=== PATIENT | female | born 1945 | race African-American/Black ===

== ENCOUNTER 2018-04-23 19:37 | Emergency (ER) | payer OTHER ==
--- NOTE | 2018-04-23 20:46 | RAD REPORT ---
EXAM DESCRIPTION: CT - Stone Protocol - 04/23/2018 8:24 pm CLINICAL HISTORY: Back pain, dysuria, history of recent UTI COMPARISON: CT January 2016 TECHNIQUE: Axial 5 mm thick images were obtained without oral or IV contrast. The [id number] span s the entirety of the system including uppermost abdomen and lung bases. All CT scans are performed using dose optimization technique as appropriate and may include automated exposure control or mA/KV adjustment according to patient size. FINDINGS: No hydronephrosis is present and no obstructing ureteral calculi. No suspicious renal mass es. Isodense masses and pyelonephritis are not excluded on a stone protocol CT scan. No urinary bladd er suspicious finding. Uterus and ovaries show no suspicious findings. Imaged portions of the liver, spleen and pancreas show no suspicious findings on non-contrast imaging . No gallbladder or biliary tree abnormality identified. No significant adrenal finding. No suspicious bowel findings. Appendix is normal. No hernia, mass or bulky lymphadenopathy noted. No free air, free fluid or inflammatory stranding. Disc and bony degenerative changes are present. No pathologic bone process. Vascular calcifications a re present. IMPRESSION: No hydronephrosis, obstructing calculus or other acute finding. Isodense masses and pyelonephritis are not excluded on stone protocol technique. Remainder the examination, as detailed above, shows no significant or suspicious finding.
[2018-04-23] MEDS ORDERED: NA CHLORIDE 0.9% 500 ML ONE (21:11)
[2018-04-23 21:20] LABS: Absolute Lymphocytes (CBC) 2.4 K/uL (0.7-4.9); Absolute Monocytes 0.8 K/uL (0.1-1.3); Absolute Neutrophil 3.7 K/uL (1.8-8.0); Basophils % 0.9 % (0-1.3); Eosinophils % 0.7 % (0-4.4); Hematocrit 41.9 % (36.0-45.0); Lymphocytes % 33.9 % (15.3-44.8); MCH 30.7 pg (27.0-35.0); MCV 89.6 fL (80-100); MPV 9.4 fL (7.6-11.3); Monocytes % 11.4 % (3.3-12.3); RBC Red Blood Cell Count 4.68 M/uL (3.86-4.86)
[2018-04-23 22:22] LABS: ALT/SGPT 16 U/L (12-78); AST/SGOT 11 U/L (15-37); Albumin 3.6 g/dL (3.4-5.0); Alkaline Phosphatase 94 U/L (45-117); BUN Blood Urea Nitrogen 13 mg/dL (7-18); Bicarbonate 29 mmol/L (21-32); Bilirubin Direct < 0.1 mg/dL (0-0.2); Bilirubin Total 0.3 mg/dL (0.2-1.0); Glucose Level 103 mg/dL (74-106); Lipase 112 U/L (73-393); Protein, Total 7.7 g/dL (6.4-8.2); Sodium Level 133 mmol/L (136-145)
[2018-04-23 22:27] LABS: Potassium 2.5 mmol/L (3.5-5.1)
[2018-04-23 22:29] LABS: Urine Blood TRACE (NEG); Urine Glucose NEGATIVE (NEG); Urine Protein NEGATIVE (NEG); Urine Specific Gravity 1.015 (1.005-1.030)
[2018-04-23 22:44] LABS: Urine Bacteria <20 /HPF (<20); Urine Culture Reflex Order NOT NEEDED; Urine RBC <5 /HPF (NONE SEEN)
[2018-04-23] MEDS ORDERED: KCL 20 MEQ/100 mL IVPB 20 MEQ/100 ML BAG IV ONE (22:47)
[2018-04-23] MEDS ORDERED: POTASSIUM CL SA 10 MEQ TAB PO ONE ×2 (22:47→23:26)
--- NOTE | 2018-04-23 23:32 | ER ---
Nurse's Notes [facility] Name: Hosea Guillen Age: 72 yrs Sex: Female : 1945 Arrival Date: 04/23/2018 Time: 19:38 Bed 7 Private MD: Diagnosis: Dysuria;Hypokalemia Presentation: 04/23 20:05 Presenting complaint: Patient states: she is having low back pain and difficulty bb urinating states she cannot empty her bladder she recently had a bladder infection and saw her doctor for that but she is still having back pain. Transition of care: patient was not received from another setting of care. Onset of symptoms is unknown. Risk Assessment: Do you want to hurt yourself or someone else? Patient reports no desire to harm self or others. Initial Sepsis Screen: Does the patient meet any 2 criteria? No. Patient's initial sepsis screen is negative. Does the patient have a suspected source of infection? No. Patient's initial sepsis screen is negative. Care prior to arrival: None. 20:05 Method Of Arrival: Ambulatory bb 20:05 Acuity: ANNE 3 bb Historical: - Allergies: 20:08 Codeine; bb 20:08 Morphine; bb - Home Meds: 20:08 [id number] Oral [Active]; Haldol Oral 5 mg [Active]; bb Triamterene-Hydrochlorothiazid Oral [Active]; - PMHx: 20:08 Hypertension; UTI; bb - PSHx: 20:08 Tubal ligation; Thyroidectomy; bb - Immunization history:: Adult Immunizations unknown. - Family history:: not pertinent. - Ebola Screening: : No symptoms or risks identified at this time. - Social history:: Smoking status: unknown. - Hospitalizations: : No recent hospitalization is reported. Screenin:21 Abuse screen: Denies threats or abuse. Nutritional screening: No deficits noted. jd3 Tuberculosis screening: No symptoms or risk factors identified. Fall Risk Ambulatory Aid- None/Bed Rest/Nurse Assist (0 pts). Gait- Weak (10 pts.). Mental Status- Oriented to own ability (0 pts). Total Cardenas Fall Scale indicates No Risk (0-24 pts). Assessment: 20:19 General: Appears in no apparent distress. uncomfortable, Behavior is calm, cooperative, jd3 appropriate for age. Pain: Complains of pain in low back area Quality of pain is described as aching, sharp. Neuro: Level of Consciousness is awake, alert, obeys commands, Oriented to person, place, time, situation, Appropriate for age. Cardiovascular: Heart tones S1 S2 present Capillary refill < 3 seconds Patient's skin is warm and dry. Respiratory: Airway is patent Respiratory effort is even, unlabored, Respiratory pattern is regular, symmetrical, Breath sounds are clear bilaterally. GI: Abdomen is round Bowel sounds present X 4 quads. : Reports inability to void, since pt reports problem for about 2 weeks. EENT: No signs and/or symptoms were reported regarding the EENT system. Derm: Skin is intact, Skin is dry, Skin is normal, Skin temperature is warm. Musculoskeletal: Circulation, motion, and sensation intact. Range of motion: intact in all extremities. 21:28 Reassessment: Patient appears in no apparent distress at this time. No changes from jd3 previously documented assessment. Patient and/or family updated on plan of care and expected duration. Pain level reassessed. Patient is alert, oriented x 3, equal unlabored respirations, skin warm/dry/pink. 22:39 Reassessment: Patient appears in no apparent distress at this time. No changes from jd3 previously documented assessment. Patient and/or family updated on plan of care and expected duration. Pain level reassessed. Patient is alert, oriented x 3, equal unlabored respirations, skin warm/dry/pink. 23:15 Reassessment: IV to left AC infiltrated and discontinued with catheter intact, bleeding bb controlled, pressure dressing applied. Dr Atkinson notified received new orders pt medicated see NOV. 23:32 Reassessment: Patient appears in no apparent distress at this time. Patient and/or jd3 family updated on plan of care and expected duration. Pain level reassessed. Patient is alert, oriented x 3, equal unlabored respirations, skin warm/dry/pink. Patient states feeling better. 23:41 Reassessment: Patient appears in no apparent distress at this time. Patient and/or jd3 family updated on plan of care and expected duration. Pain level reassessed. Patient is alert, oriented x 3, equal unlabored respirations, skin warm/dry/pink. pt reported understanding of discharge instructions, even and steady gait upon discharge. Patient states symptoms have improved. Vital Signs: 20:13 BP 140 / 78; Pulse 109; Resp 18 S; Temp 98.8(O); Pulse Ox 96% on R/A; Weight 86.18 kg jd3 (R); Height 5 ft. 2 in. (157.48 cm) (R); Pain 7/10; 21:28 BP 107 / 65; Pulse 73; Resp 16 S; Pulse Ox 97% on R/A; jd3 22:38 BP 146 / 45; Pulse 75; Resp 17 S; Pulse Ox 96% on R/A; jd3 23:32 BP 165 / 75; Pulse 80; Resp 16 S; Pulse Ox 96% on R/A; jd3 20:13 Body Mass Index 34.75 (86.18 kg, 157.48 cm) jd3 ED Course: 19:38 Patient arrived in ED. ds1 19:42 Cali Atkinson MD is Attending Physician. rn 19:58 Marcus Fox RN is Primary Nurse. jd3 20:07 Triage completed. bb 20:08 Arm band placed on Patient placed in an exam room, on a stretcher, on pulse oximetry. bb 20:21 Patient has correct armband on for positive identification. Placed in gown. Bed in low jd3 position. Call light in reach. Side rails up X 1. 20:24 CT completed. Patient moved to CT. Patient moved back from CT. nj 20:25 CT Stone Protocol In Process Unspecified. EDMS 21:55 Inserted saline lock: 20 gauge in left antecubital area, using aseptic technique. Blood jd3 collected. placed by Dr. Atkinson. 22:10 Straight cath inserted, using sterile technique, 16 Fr. Specimen obtained. jd3 22:29 Notified ED physician of a critical lab result(s). Potassium of 2.5 Dr Atkinson notified. bb 23:17 IV discontinued, intact, bleeding controlled, Pressure dressing applied. bb 23:42 No provider procedures requiring assistance completed. jd3 Administered Medications: Discontinued: NS 0.9% 500 ml IV at bolus once Discontinued: Potassium Chloride 20 mEq IV at calculated rate once; administer over 1-2 hours 21:47 Drug: NS 0.9% 500 ml Route: IV; Rate: bolus; Site: left antecubital; jd3 23:34 Follow up: Response: No adverse reaction; IV Status: Order to discontinue infusion jd3 22:52 Drug: Potassium Chloride 20 mEq Route: IV; Rate: calculated rate; Site: left jd3 antecubital; 23:20 Follow up: Response: No adverse reaction; IV Status: Order to discontinue infusion jd3 22:52 Drug: Potassium Chloride 40 mEq Route: PO; jd3 23:33 Follow up: Response: No adverse reaction jd3 23:24 Drug: Potassium Chloride 20 mEq Route: PO; jd3 23:33 Follow up: Response: No adverse reaction jd3 Output: 22:10 Urine: 200ml (Straight Cath); Total: 200ml. jd3 Outcome: 23:32 Discharge ordered by . rn 23:42 Discharged to home ambulatory, with family. jd3 23:42 Condition: stable 23:42 Discharge instructions given to patient, Instructed on discharge instructions, follow up and referral plans. Demonstrated understanding of instructions, follow-up care. 23:43 Patient left the ED. jd3 Signatures: Dispatcher [employer] EDPR ChristensenGema kaplan ds1 Tierra Jones RN RN bb Nieto, Roman, MD MD rn Jordan, Nathan nj Davies, Jonathon, RN RN jd3
--- NOTE | 2018-04-23 23:32 | EDPHYS ---
Physician Documentation [facility] Name: Hosea Guillen Age: 72 yrs Sex: Female : 1945 Arrival Date: 04/23/2018 Time: 19:38 Bed 7 Private MD: ED Physician Cali Atkinson HPI: 04/23 20:05 This 72 yrs old Black Female presents to ER via Unassigned with complaints of Low Back rn Pain, Urinary Retention. 20:05 The patient presents with pain that is acute, with no known mechanism of injury. The rn symptoms are located in the low back. The pain does not radiate. Onset: The symptoms/episode began/occurred 2 week(s) ago. Modifying factors: The patient symptoms are alleviated by nothing, the patient symptoms are aggravated by. Severity of symptoms: At their worst the symptoms were mild, in the emergency department the symptoms are unchanged. The patient has experienced similar episodes in the past. Reports 2 weeks of low back pain and right flank pain, intermittent, thinks has "kidney infection", has happened before and had kidney infection, reports dysuria and trouble urinating, able to urinate some but doesn't feel like can empty. . Historical: - Allergies: 20:08 Codeine; bb 20:08 Morphine; bb - Home Meds: 20:08 mlrbljivkq-bhhbvqwix-nezvxpfqcsqdqpgwxpa Oral [Active]; Haldol Oral 5 mg [Active]; bb Triamterene-Hydrochlorothiazid Oral [Active]; - PMHx: 20:08 Hypertension; UTI; bb - PSHx: 20:08 Tubal ligation; Thyroidectomy; bb - Immunization history:: Adult Immunizations unknown. - Family history:: not pertinent. - Ebola Screening: : No symptoms or risks identified at this time. - Social history:: Smoking status: unknown. - Hospitalizations: : No recent hospitalization is reported. ROS: 20:28 Constitutional: Negative for fever, chills, and weight loss, Eyes: Negative for injury, rn pain, redness, and discharge, Neck: Negative for injury, pain, and swelling, Cardiovascular: Negative for chest pain, palpitations, and edema, Respiratory: Negative for shortness of breath, cough, wheezing, and pleuritic chest pain, Abdomen/GI: Negative for abdominal pain, nausea, vomiting, diarrhea, and constipation, MS/Extremity: Negative for injury and deformity, Skin: Negative for injury, rash, and discoloration, Neuro: Negative for headache, numbness, tingling, and seizure. Exam: 20:28 Constitutional: This is a well developed, well nourished patient who is awake, alert, rn and in no acute distress. Head/Face: Normocephalic, atraumatic. Eyes: Pupils equal round and reactive to light, extra-ocular motions intact. Lids and lashes normal. Conjunctiva and sclera are non-icteric and not injected. Cornea within normal limits. Periorbital areas with no swelling, redness, or edema. ENT: No oral lesions or swelling, dry MM Cardiovascular: tachycardic, regular, no murmur Respiratory: Lungs have equal breath sounds bilaterally, clear to auscultation and percussion. No rales, rhonchi or wheezes noted. No increased work of breathing, no retractions or nasal flaring. Abdomen/GI: Soft, non-tender, with normal bowel sounds. No distension or tympany. No guarding or rebound. No evidence of tenderness throughout. Back: No spinal tenderness. No costovertebral tenderness. Full range of motion. MS/ Extremity: Pulses equal, no cyanosis. Neurovascular intact. Full, normal range of motion. Equal circumference. Neuro: Awake and alert, GCS 15, oriented to person, place, and situation. Cranial nerves II-XII grossly intact. Motor strength 5/5 in all extremities. Sensory grossly intact. Vital Signs: 20:13 BP 140 / 78; Pulse 109; Resp 18 S; Temp 98.8(O); Pulse Ox 96% on R/A; Weight 86.18 kg jd3 (R); Height 5 ft. 2 in. (157.48 cm) (R); Pain 7/10; 21:28 BP 107 / 65; Pulse 73; Resp 16 S; Pulse Ox 97% on R/A; jd3 22:38 BP 146 / 45; Pulse 75; Resp 17 S; Pulse Ox 96% on R/A; jd3 23:32 BP 165 / 75; Pulse 80; Resp 16 S; Pulse Ox 96% on R/A; jd3 20:13 Body Mass Index 34.75 (86.18 kg, 157.48 cm) jd3 Procedures: 21:41 Peripheral line: by aseptic technique a peripheral line was placed in the left rn antecubital vein, Using u/s guidance, left AC 20g IV placed by Dr. Atkinson. Good flow and flush.. MDM: 19:42 Patient medically screened. rn 23:30 Differential diagnosis: UTI, haldol side effect, dehydration, hypokalemia, renal rn failure. Data reviewed: vital signs, nurses notes, lab test result(s), EKG, radiologic studies, and as a result, I will discharge patient. Counseling: I had a detailed discussion with the patient and/or guardian regarding: the historical points, exam findings, and any diagnostic results supporting the discharge/admit diagnosis, lab results, radiology results, the need for outpatient follow up, to return to the emergency department if symptoms worsen or persist or if there are any questions or concerns that arise at home. Response to treatment: the patient's symptoms have markedly improved after treatment, Able to urinate, urinated another 200cc urine on her own. States feels better. Will take multivitamin and f/u with pcp, could be side effect of haldol, needs to stay hydrated. Urine micro neg. , and as a result, I will discharge patient. 04/23 19:55 Order name: Lipase rn 04/23 19:55 Order name: Basic Metabolic Panel rn 04/23 19:55 Order name: CBC with Diff; Complete Time: 22:29 rn 04/23 19:55 Order name: Hepatic Function; Complete Time: 22:29 rn 04/23 19:55 Order name: Urine Microscopic Only; Complete Time: 23:05 rn 04/23 19:55 Order name: Urine Culture rn 04/23 19:55 Order name: Blood Culture Adult (2) rn 04/23 19:55 Order name: CT Stone Protocol; Complete Time: 20:47 rn 04/23 19:55 Order name: Lipase; Complete Time: 22:29 EDMS 04/23 19:55 Order name: Basic Metabolic Panel; Complete Time: 22:29 EDMS 04/23 22:21 Order name: Urine Dipstick--Ancillary (enter results); Complete Time: 22:30 mw2 04/23 19:55 Order name: IV Saline Lock; Complete Time: 21:46 rn 04/23 19:55 Order name: Labs collected and sent; Complete Time: 21:46 rn 04/23 19:55 Order name: Urine Dipstick-Ancillary (obtain specimen); Complete Time: 22:21 rn 04/23 19:55 Order name: Bladder Scanner; Complete Time: 20:13 rn 04/23 20:32 Order name: EKG; Complete Time: 20:32 rn 04/23 20:32 Order name: EKG - Nurse/Tech; Complete Time: 21:04 rn 04/23 21:04 Order name: Straight Cath; Complete Time: 22:21 jd3 Administered Medications: Discontinued: NS 0.9% 500 ml IV at bolus once Discontinued: Potassium Chloride 20 mEq IV at calculated rate once; administer over 1-2 hours 21:47 Drug: NS 0.9% 500 ml Route: IV; Rate: bolus; Site: left antecubital; jd3 23:34 Follow up: Response: No adverse reaction; IV Status: Order to discontinue infusion jd3 22:52 Drug: Potassium Chloride 20 mEq Route: IV; Rate: calculated rate; Site: left jd3 antecubital; 23:20 Follow up: Response: No adverse reaction; IV Status: Order to discontinue infusion jd3 22:52 Drug: Potassium Chloride 40 mEq Route: PO; jd3 23:33 Follow up: Response: No adverse reaction jd3 23:24 Drug: Potassium Chloride 20 mEq Route: PO; jd3 23:33 Follow up: Response: No adverse reaction jd3 Disposition: 04/23/18 23:32 Discharged to Home. Impression: Dysuria, Hypokalemia. - Condition is Stable. - Discharge Instructions: Dysuria, Hypokalemia. - Medication Reconciliation Form, Thank You Letter, Antibiotic Education, Prescription Opioid Use form. - Follow up: Private Physician; When: As needed; Reason: Recheck today's complaints, Re-evaluation by your physician. - Problem is an ongoing problem. - Symptoms have improved. Signatures: Dispatcher [employer] EDMS Tierra Jones RN RN bb Nieto, Roman, MD MD rn Davies, Jonathon, RN RN jd3 Corrections: (The following items were deleted from the chart) 23:43 23:32 04/23/2018 23:32 Discharged to Home. Impression: Dysuria; Hypokalemia. Condition jd3 is Stable. Forms are Medication Reconciliation Form, Thank You Letter, Antibiotic Education, Prescription Opioid Use. Follow up: Private Physician; When: As needed; Reason: Recheck today's complaints, Re-evaluation by your physician. Problem is an ongoing problem. Symptoms have improved. rn
[2018-04-23 23:53] VITALS: TEMP 98.8
[2018-04-23 23:55] VITALS: O2SAT 96
[2018-04-23 23:56] VITALS: BP 165/75
--- NOTE | 2018-04-24 07:27 | EKG ---
Test Date: 2018-04-23 Test Time: 20:44:34 [employer] Manager: CELIA MEASUREMENT RESULTS: Intervals: Rate: 69 VA: 158 QRSD: 98 QT: 400 QTc: 428 [place]: P: 37 VA: 158 QRS: 35 T: 54 INTERPRETIVE STATEMENTS: Sinus rhythm with occasional premature ventricular complexes Otherwise normal ECG Compared to ECG 02/03/2016 05:51:25 Atrial premature complex(es) now present Ventricular premature complex(es) now present T-wave abnormality no longer present Electronically Signed On 04-24-18 07:27:18 CDT by Jamir Barrett
== END 2018-04-23 23:43 | disposition home or self-care (01) ==
LOC: ER 19:37
PROC: 05HF33Z Insertion of Infusion Device into Left Cephalic Vein, Percutaneous Approach (ICD-10-PCS; principal; 2018-04-23)
DX: E87.6 Hypokalemia (principal); I10 Essential (primary) hypertension; Z88.5 Allergy status to narcotic agent
CPT/HCPCS: 36415; 51702; 74176; 76377; 80048; 80076; 81003; 81015; 83690; 85025; 87040; 87086; 87088; 93005; 96361; 96365; 99284

== ENCOUNTER 2019-04-27 07:25 | Emergency (ER) | payer OTHER ==
--- OUTSIDE RECORDS SUMMARY | 2019-04-27 07:27 | XMS REPORT ---
:1945 [facility] Address [address] [place] [address] Dr. Serrato [address] [place] [id number] Care Team Providers Name Role Phone Unavailable Unavailable Unavailable Problems This patient has no known problems. Allergies, Adverse Reactions, Alerts This patient has no known allergies or adverse reactions. Medications This patient has no known medications.
--- OUTSIDE RECORDS SUMMARY | 2019-04-27 07:27 | XMS REPORT | Summary of Care ---
:1945 Author Organization [facility] Address [address] [place] [address] Care Team Providers Name Role Phone 1, [facility] Unavailable Unavailable Yoel Hernández MD Unavailable Ildefonso Amanda MD Primary Care Provider Reason for Referral Radiology Services (Routine) Status Reason Specialty Diagnoses / Referred By Referred To Procedures Contact Contact New Request Diagnostic Diagnoses Fall, initial encounter Juan Quinn, Radiology Procedures XR PELVIS <3 VW DO [address] [place] [address]. RT [address] [place] [address] MRI/CAT Scan (Routine) Status Reason Specialty Diagnoses / Referred By Referred To Procedures Contact Contact New Request Diagnostic Diagnoses Fall, initial encounter Juan Quinn, Radiology Procedures CT CERVICAL SPINE WO CONTRAST DO [address] [place] [address]. RT [address] [place] [id number] MRI/CAT Scan (STAT) Status Reason Specialty Diagnoses / Referred By Referred To Procedures Contact Contact New Request Diagnostic Diagnoses Fall, initial encounter Juan Quinn, Radiology Procedures CT HEAD WO CONTRAST DO [address] [place] [address]. RT [address] [place] [phone] Radiology Services (Routine) Status Reason Specialty Diagnoses / Referred By Referred To Procedures Contact Contact New Request Diagnostic Diagnoses Fall, initial encounter Juan Quinn, Radiology Procedures XR PELVIS <3 VW DO [address] [place] [address]. RT [address] [place] [phone] MRI/CAT Scan (Routine) Status Reason Specialty Diagnoses / Referred By Referred To Procedures Contact Contact New Request Diagnostic Diagnoses Fall, initial encounter Juan Quinn, Radiology Procedures CT CERVICAL SPINE WO CONTRAST DO [address] [place] [address]. RT [address] [place] [phone] MRI/CAT Scan (STAT) Status Reason Specialty Diagnoses / Referred By Referred To Procedures Contact Contact New Request Diagnostic Diagnoses Fall, initial encounter QuinnJuan, Radiology Procedures CT HEAD WO CONTRAST DO [address] [place] [address]. RT [address] [place] [phone] Reason for Visit Reason Comments Hip Pain Auth/Cert Status Reason Specialty Diagnoses / Referred By Referred To Procedures Contact Contact Emergency [facility] [address] [place] [address] [place] [address] Encounter Details Date Type Department Care Team Description 04/20/2019 Emergency [facility] Singer Juan DO Grubbs, initial encounter (Primary Dx); Department [address] [place] [address]. Right hip pain; [address] [place] [address] RT 0711 Acute post-traumatic headache, not intractable; [place], [place] [id number] [place] [phone] Urinary frequency; [phone] Acute cystitis without hematuria Allergies Active Allergy Reactions Severity Noted Date Comments Codeine Anxiety High 05/27/2006 Iodine Swelling 04/10/2017 "makes me sore" Morphine Anxiety 04/13/2016 documented as of this encounter (statuses as of 04/20/2019) Medications Medication Sig Dispensed Refills Start Date End Date Status amLODIPine 2.5 mg Take 1 tablet by 30 tablet 0 04/01/2019 05/01/2019 Active tabletIndications: mouth daily for Hyponatremia 30 days. aspirin 81 mg Take 1 tablet by 30 tablet 2 04/01/2019 06/30/2019 Active chewable mouth daily with tabletIndications: breakfast for 90 Hyponatremia days. atorvastatin 40 mg Take 1 tablet by 30 tablet 2 03/31/2019 06/29/2019 Active tabletIndications: mouth at bedtime Hyponatremia for 90 days. docusate 100 mg Take 1 capsule 30 capsule 0 03/31/2019 04/30/2019 Active capsuleIndications: by mouth daily Hyponatremia for 30 days. metoprolol succinate Take 1 tablet by 30 tablet 0 04/01/2019 05/01/2019 Active XL 25 mg 24 hr mouth daily for tabletIndications: 30 days. Hyponatremia risperiDONE 1 mg Take 1 tablet by 60 tablet 0 03/31/2019 04/30/2019 Active tabletIndications: mouth 2 (two) Hyponatremia times daily for 30 days. benztropine 2 mg Take 1 tablet by 60 tablet 0 03/31/2019 04/30/2019 Active tabletIndications: mouth 2 (two) Hyponatremia times daily for 30 days. naproxen sodium Take 1 tablet by 30 tablet 0 04/20/2019 Active (ANAPROX DS) 550 mg mouth 2 (two) tabletIndications: times daily with Right hip pain, Acute meals. cystitis without hematuria methocarbamol 500 mg Take 1 tablet by 15 tablet 0 04/20/2019 04/25/2019 Active tabletIndications: mouth 3 (three) Right hip pain, Acute times daily for cystitis without 5 days. hematuria cephALEXin (KEFLEX) Take 1 capsule 21 capsule 0 04/20/2019 04/27/2019 Active 500 mg by mouth 3 capsuleIndications: (three) times Right hip pain, Acute daily for 7 cystitis without days. hematuria documented as of this encounter (statuses as of 04/20/2019) Active Problems Problem Noted Date Stenosis of left carotid artery 03/29/2019 Acute cystitis without hematuria 03/27/2019 Hypokalemia 03/26/2019 Syncope 03/26/2019 Metabolic encephalopathy 02/04/2019 Other schizophrenia 04/20/2017 Diastolic dysfunction 03/28/2016 ABRAMS (dyspnea on exertion) 09/27/2015 Tobacco abuse 09/27/2015 Cardiac murmur 09/27/2015 Obesity 09/27/2015 Nodule of neck 06/15/2015 Osteoarthritis of both knees, unspecified osteoarthritis type 05/11/2015 S/P thyroidectomy 05/11/2015 Essential hypertension 05/27/2006 Overview: ICD10 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 documented as of this encounter (statuses as of 04/20/2019) Resolved Problems Problem Noted Date Resolved Date Acute renal insufficiency 04/10/2017 04/20/2017 Preop examination 09/27/2015 04/20/2017 UTI (lower urinary tract infection) 06/15/2015 04/20/2017 Essential hypertension 05/11/2015 04/20/2017 Acute pyelonephritis 05/11/2015 04/20/2017 Paranoid schizophrenia, chronic condition with acute 05/27/2006 04/20/2017 exacerbation OD Corneal Irritation 05/27/2006 04/20/2017 documented as of this encounter (statuses as of 04/20/2019) Immunizations Name Administration Dates Next Due Influenza High Dose 06/23/2018, 07/03/2017, 07/11/2016 Pneumococcal 13 Conjugate, PCV13 (Prevnar 07/11/2016 13) documented as of this encounter Social History Tobacco Use Types Packs/Day Years Used Date Current Every Day Smoker Cigarettes 0.5 30 Smokeless Tobacco: Never Used Comments: 1PPD x since t was 13 years old Alcohol Use Drinks/Week oz/Week Comments No 0 Standard drinks or equivalent 0.0 Sex Assigned at Date Recorded Not on file Job Start Date Occupation Industry Not on file Not on file Not on file Travel History Travel Start Travel End No recent travel history available. documented as of this encounter Last Filed Vital Signs Vital Sign Reading Time Taken Comments Blood Pressure 185/75 04/20/2019 8:40 PM CDT Pulse 93 04/20/2019 8:40 PM CDT Temperature 36.1 C (96.9 F) 04/20/2019 8:12 PM CDT Respiratory Rate 18 04/20/2019 8:12 PM CDT Oxygen Saturation 100% 04/20/2019 8:12 PM CDT Inhaled Oxygen Concentration - - Weight 77.1 kg (170 lb) 04/20/2019 8:12 PM CDT Height 152.4 cm (5') 04/20/2019 8:12 PM CDT Body Mass Index 33.2 04/20/2019 8:12 PM CDT documented in this encounter Discharge Instructions Juan Liang DO - 04/20/2019 DIAGNOSIS Diagnoses that have been ruled out: None Diagnoses that are still under consideration: None Final diagnoses: Fall, initial encounter Right hip pain Acute post-traumatic headache, not intractable Urinary frequency Acute cystitis without hematuria NO LIFE-THREATENING FINDINGS ON TODAY'S EXAM. PROCEDURES IN THE ER TODAY: Orders Placed This Encounter Procedures CT HEAD WO CONTRAST CT CERVICAL SPINE WO CONTRAST XR PELVIS <3 VW URINALYSIS MEDICATIONS ADMINISTERED IN THE ER TODAY AND DISCHARGE MEDICATIONS: No orders of the defined types were placed in this encounter. FOLLOW-UP RECOMMENDATIONS: RECOMMEND FOLLOW-UP WITH A PRIMARY CARE PROVIDER OR SPECIALIST IN 2-5 DAYS, ESPECIALLY IF NO IMPROVEMENT IN SYMPTOMS. MAY FOLLOW-UP WITH A PROVIDER OF YOUR CHOICE, SUCH : 1. A PHYSICIAN OF YOUR CHOICE 2. [facility], . LOCATIONS IN [facility] 3. [facility], [address] [place] [address]; OR, IF YOU WISH TO FOLLOW-UP WITHIN THE [facility], MAY TRY THESE OPTIONS (CLINIC APPOINTMENTS AVAILABLE ON TULV-VO-TOFM BASIS): 1. SCHEDULE AN APPOINTMENT ONLINE AT WWW.[facility] 2. OR CALL THE [facility] AT OR 3. OR CALL YOUR [facility] PHYSICIAN'S OFFICE DIRECTLY IF YOU ARE ALREADY AN ESTABLISHED [facility] PATIENT. RETURN TO ER FOR WORSENING OF SYMPTOMS. AttachmentsThe following attachments cannot be sent through Care Everywhere.Urinary Tract Infections (UTIs), Understanding (Citizen Of [place])documented in this encounter Plan of Treatment Name Type Priority Associated Diagnoses Date/Time CT HEAD WO CONTRAST IMAGING STAT Fall, initial encounter 04/20/2019 9:[address] CERVICAL SPINE WO IMAGING Routine Fall, initial encounter 04/20/2019 9: 07 PM CONTRAST CDT XR PELVIS <3 VW IMAGING Routine Fall, initial encounter 04/20/2019 8:57 PM CDT Health Maintenance Due Date Last Done Comments DTaP,Tdap,and Td Vaccines (1 - Tdap) 1962 MAMMOGRAM 1983 Zoster Recombinant Vaccine 1993 (SHINGRIX) (1 of 2) LUNG CANCER SCREEN: Recommended for 1998 age 55-80 with 30 + pack year history Medicare Wellness Visit 2008 Osteoporosis Screening 2008 PNEUMOCOCCAL VACCINES 65+ (2 of 2 - 07/11/2017 07/11/2016 PPSV23) INFLUENZA VACCINE 05/22/2019 06/23/2018, 07/03/2017, 07/11/2016 COLONOSCOPY Discontinued documented as of this encounter Procedures Procedure Name Priority Date/Time Associated Comments Diagnosis URINALYSIS STAT 04/20/2019 9:25 PM Fall, initial Results for this CDT encounter procedure are in the results section. CT HEAD WO CONTRAST STAT 04/20/2019 9:07 PM Fall, initial CDT encounter Procedure Note - [facility], Radiant Results Inft User - 04/20/2019 9:33 PM CDT * * * * * * * * ORIGINAL REPORT * * * * * * * * EXAM: CT HEAD WO CONTRAST, EXAM: CT CERVICAL SPINE WO CONTRAST HISTORY: Unspecified injury s/p trauma Trauma. Fall, post traumatic headache COMPARISON: CT head dated 02/04/2019. TECHNIQUE: CT head and CT cervical spine were obtained and reconstructed into axial, coronal and sagittal projection images. HEAD FINDINGS: Slight symmetric prominence of the caliber sulci and ventricles, commensurate with the mild observed degree of central cerebral volume loss. No hydrocephalus, midline shift or pathological extra-axial fluid collection is present. The basal cisterns are unremarkable. There is no acute intracranial hemorrhage or significant mass effect. Scattered periventricular and deep white matter hypodensities are nonspecific, but likely reflect sequelae of microvascular white matter ischemic disease. The christensen-white matter differentiation is preserved. The mastoid air cells and paranasal air sinuses are clear. The calvarium and central skull base are unremarkable. The carotid siphons are partially calcified. CERVICAL SPINE FINDINGS: Straightening of normal cervical lordosis is noted. A 0.6 cm focus of sclerosis is seen at the lateral mass of C2, may represent a bone island. The vertebral bodies are normal in height and in normal alignment. No facet fracture or subluxation is present. The craniocervical junction is intact. The prevertebral soft tissues are unremarkable. Anteriorly projecting osteophytes, endplate subchondral sclerosis and intervertebral disc space narrowing are noted at level of C4-C5 and C5-C6. The carotid siphons are partially calcified. The lung apices are unremarkable. IMPRESSION No acute intracranial abnormality. Background chronic microvascular white matter ischemic changes with mild central cerebral volume loss. No cervical spine traumatic malalignment, acute fracture or subluxation is identified. Mild to moderate C4/C6 spondylosis. CT CERVICAL SPINE WO Routine 04/20/2019 9:07 PM CDT Fall, initial encounter CONTRAST Procedure Note - [facility], Radiant Results Inft User - 04/20/2019 9:33 PM CDT * * * * * * * * ORIGINAL REPORT * * * * * * * * EXAM: CT HEAD WO CONTRAST, EXAM: CT CERVICAL SPINE WO CONTRAST HISTORY: Unspecified injury s/p trauma Trauma. Fall, post traumatic headache COMPARISON: CT head dated 02/04/2019. TECHNIQUE: CT head and CT cervical spine were obtained and reconstructed into axial, coronal and sagittal projection images. HEAD FINDINGS: Slight symmetric prominence of the caliber sulci and ventricles, commensurate with the mild observed degree of central cerebral volume loss. No hydrocephalus, midline shift or pathological extra-axial fluid collection is present. The basal cisterns are unremarkable. There is no acute intracranial hemorrhage or significant mass effect. Scattered periventricular and deep white matter hypodensities are nonspecific, but likely reflect sequelae of microvascular white matter ischemic disease. The christensen-white matter differentiation is preserved. The mastoid air cells and paranasal air sinuses are clear. The calvarium and central skull base are unremarkable. The carotid siphons are partially calcified. CERVICAL SPINE FINDINGS: Straightening of normal cervical lordosis is noted. A 0.6 cm focus of sclerosis is seen at the lateral mass of C2, may represent a bone island. The vertebral bodies are normal in height and in normal alignment. No facet fracture or subluxation is present. The craniocervical junction is intact. The prevertebral soft tissues are unremarkable. Anteriorly projecting osteophytes, endplate subchondral sclerosis and intervertebral disc space narrowing are noted at level of C4-C5 and C5-C6. The carotid siphons are partially calcified. The lung apices are unremarkable. IMPRESSION No acute intracranial abnormality. Background chronic microvascular white matter ischemic changes with mild central cerebral volume loss. No cervical spine traumatic malalignment, acute fracture or subluxation is identified. Mild to moderate C4/C6 spondylosis. XR PELVIS <3 VW Routine 04/20/2019 8:57 PM CDT Fall, initial encounter Procedure Note - [facility], Radiant Results Inft User - 04/20/2019 9:04 PM CDT EXAM: XR PELVIS <3 VW HISTORY: trauma COMPARISON: None available. FINDINGS: Single view of the pelvis demonstrates no acute fracture or dislocation. Mild degenerative changes affect both hip joints. The soft tissues are unremarkable. IMPRESSION No acute osseous abnormality. NOTICE OF PRIVACY PRACTICES Routine 04/20/2019 8:04 PM CDT CONSENT/REFUSAL FOR DIAGNOSIS AND TREATMENT Routine 04/20/2019 8:01 PM CDT documented in this encounter Results URINALYSIS (04/20/2019 9:25 PM CDT) APPEARANCE Clear Clear [facility] COLOR Yellow Yellow [facility] PH 8.0 4.8 - 8.0 [facility] SP GRAVITY 1.010 1.003 - 1.030 [facility] GLU U QUAL Negative Negative [facility] BLOOD Trace (A) Negative [facility] KETONES Negative Negative [facility] PROTEIN Negative Negative [facility] UROBILIN 0.2 mg/dL 0-1.0 mg/dL [facility] BILIRUBIN Negative Negative [facility] NITRITE Negative Negative [facility] LEUK FRANCY Moderate (A) Negative [facility] RBC/HPF 1 0 - 3 HPF [facility] WBC/HPF 10 (H) 0 - 5 HPF [facility] BACTERIA Moderate (A) Negative [facility] SQ EPITH 1 HPF [facility] Specimen Urine - URINE, CATHETERIZED Performing Organization Address City/State/Zipcode Phone Number [facility] CLIA: [id number], [address] [place] [address] documented in this encounter Visit Diagnoses Diagnosis Fall, initial encounter - Primary Right hip pain Pain in joint, pelvic region and thigh Acute post-traumatic headache, not intractable Acute post-traumatic headache Urinary frequency Acute cystitis without hematuria Acute cystitis documented in this encounter Insurance Payer Benefit Plan / Subscriber ID Effective Phone Address Type Group Dates [facility] [id number] 2017-Pres Medicare HEALTHCARE - HEALTHCARE ent Adv HMO MANAGED DUAL COMPLETE MEDICARE HMO TM[employer] MEDICAID OF xxxxxxxxx 2018-Pres [phone] Medicaid [place] ent [id number] [place] [address] documented as of this encounter Advance Directives Name Relationship Healthcare Agent Communication Relationship Xavier Martinez Child Primary healthcare agent [phone] Mindy (Mobile) Jh Claros Child Primary healthcare agent
[2019-04-27 08:00] LABS: Urine Blood NEGATIVE (NEG); Urine Glucose NEGATIVE (NEG); Urine Protein NEGATIVE (NEG)
--- NOTE | 2019-04-27 08:19 | EDPHYS ---
Physician Documentation [facility] Name: Hosea Guillen Age: 73 yrs Sex: Female : 1945 Arrival Date: 04/27/2019 Time: 07:27 Bed 16 Private MD: ED Physician Alejo Cantrell HPI: 04/27 07:41 This 73 yrs old Black Female presents to ER via EMS with complaints of Pain With josr Urination. 07:41 The patient presents with urinary symptoms, hesitancy, urinary retention. Onset: The josr symptoms/episode began/occurred last night. Modifying factors: The symptoms are alleviated by nothing, the symptoms are aggravated by nothing. Associated signs and symptoms: The patient has no apparent associated signs or symptoms. Severity of symptoms: At their worst the symptoms were mild, in the emergency department the symptoms are unchanged. The patient is not sexually active. The patient has experienced similar episodes in the past, several times. Historical: - Allergies: 07:31 Codeine; tw2 07:31 Morphine; tw2 - Home Meds: 07:31 putlelzlvn-gqsvbqktp-vfcrkfvjgieigomkjjr Oral [Active]; Haldol Oral 5 mg [Active]; tw2 Triamterene-Hydrochlorothiazid Oral [Active]; loratadine 10 mg oral TbDL 1 tab once daily [Active]; Nitrofurantoin Macrocrystal Oral [Active]; - PMHx: 07:31 Hypertension; UTI; osteoarthritis; tw2 - PSHx: 07:31 Tubal ligation; Thyroidectomy; tw2 - Immunization history:: Adult Immunizations. - Social history:: Smoking status: . - Ebola Screening: : Patient denies travel to an Ebola-affected area in the 21 days before illness onset. - Family history:: not pertinent. ROS: 07:41 Constitutional: Negative for fever, chills, and weight loss, Eyes: Negative for injury, josr pain, redness, and discharge, ENT: Negative for injury, pain, and discharge, Neck: Negative for injury, pain, and swelling, Cardiovascular: Negative for chest pain, palpitations, and edema, Respiratory: Negative for shortness of breath, cough, wheezing, and pleuritic chest pain, Back: Negative for injury and pain, MS/Extremity: Negative for injury and deformity, Skin: Negative for injury, rash, and discoloration, Neuro: Negative for headache, weakness, numbness, tingling, and seizure, Psych: Negative for depression, anxiety, suicide ideation, homicidal ideation, and hallucinations, Allergy/Immunology: Negative for hives, rash, and allergies, Endocrine: Negative for neck swelling, polydipsia, polyuria, polyphagia, and marked weight changes, Hematologic/Lymphatic: Negative for swollen nodes, abnormal bleeding, and unusual bruising. 07:41 Abdomen/GI: Positive for abdominal pain, of the suprapubic area. Exam: 07:41 Constitutional: This is a well developed, well nourished patient who is awake, alert, josr and in no acute distress. Head/Face: Normocephalic, atraumatic. Eyes: Pupils equal round and reactive to light, extra-ocular motions intact. Lids and lashes normal. Conjunctiva and sclera are non-icteric and not injected. Cornea within normal limits. Periorbital areas with no swelling, redness, or edema. ENT: Nares patent. No nasal discharge, no septal abnormalities noted. Tympanic membranes are normal and external auditory canals are clear. Oropharynx with no redness, swelling, or masses, exudates, or evidence of obstruction, uvula midline. Mucous membranes moist. Neck: Trachea midline, no thyromegaly or masses palpated, and no cervical lymphadenopathy. Supple, full range of motion without nuchal rigidity, or vertebral point tenderness. No Meningismus. Chest/axilla: Normal chest wall appearance and motion. Nontender with no deformity. No lesions are appreciated. Cardiovascular: Regular rate and rhythm with a normal S1 and S2. No gallops, murmurs, or rubs. Normal PMI, no JVD. No pulse deficits. Respiratory: Lungs have equal breath sounds bilaterally, clear to auscultation and percussion. No rales, rhonchi or wheezes noted. No increased work of breathing, no retractions or nasal flaring. Back: No spinal tenderness. No costovertebral tenderness. Full range of motion. Female : Normal external genitalia. Skin: Warm, dry with normal turgor. Normal color with no rashes, no lesions, and no evidence of cellulitis. MS/ Extremity: Pulses equal, no cyanosis. Neurovascular intact. Full, normal range of motion. Neuro: Awake and alert, GCS 15, oriented to person, place, time, and situation. Cranial nerves II-XII grossly intact. Motor strength 5/5 in all extremities. Sensory grossly intact. Cerebellar exam normal. Normal gait. Psych: Awake, alert, with orientation to person, place and time. Behavior, mood, and affect are within normal limits. 07:41 Abdomen/GI: Inspection: abdomen appears normal, Bowel sounds: normal, Palpation: mild abdominal tenderness, in the suprapubic area, Liver: no appreciated palpable abnormalities, Hernia: not appreciated. Vital Signs: 07:28 BP 169 / 93; Pulse 74; Resp 17; Pulse Ox 98% on R/A; Weight 88.45 kg (R); Height 5 ft. tw2 3 in. (160.02 cm) (R); Pain 7/10; 07:31 Temp 98.5(O); tw2 08:28 BP 166 / 77; Pulse 82; Resp 17; Pulse Ox 99% on R/A; tw2 07:28 Body Mass Index 34.54 (88.45 kg, 160.02 cm) tw2 MDM: 07:28 Patient medically screened. [facility] 07:41 Data reviewed: vital signs, nurses notes, lab test result(s), urinalysis. [facility] 04/27 07:55 Order name: Urine Dipstick--Ancillary (enter results); Complete Time: 08:09 04/27 08:13 Order name: Urine Microscopic Only [facility] 04/27 07:32 Order name: Bladder Scanner; Complete Time: 07:32 jb4 08 07:41 Order name: Cain: note pvr; Complete Time: 07:46 [facility] 04/27 08:15 Order name: EKG; Complete Time: 08:15 04/27 08:18 Order name: Misc. Order; Complete Time: 08:27 tw2 Administered Medications: 08:27 Drug: Bactrim (160 mg-800 mg (DS) 1 tablet Route: PO; tw2 08:30 Follow up: Response: No adverse reaction tw2 Disposition: 04/27/19 08:18 Discharged to Home. Impression: Dysuria, Retention of urine, unspecified. - Condition is Stable. - Discharge Instructions: Dysuria, Acute Urinary Retention, Female, [id number]. - Prescriptions for Pyridium 200 mg Oral Tablet - take 1 tablet by ORAL route every 8 hours for 3 days; 9 tablet. Bactrim DS 800- 160 mg Oral Tablet - take 1 tablet by ORAL route every 12 hours for 3 days; 6 tablet. - Medication Reconciliation Form, Thank You Letter, Antibiotic Education, Prescription Opioid Use form. - Follow up: Private Physician; When: 2 - 3 days; Reason: Recheck today's complaints, Continuance of care, Re-evaluation by your physician. - Problem is new. - Symptoms are resolved. Signatures: Dispatcher [employer] EDKY Alejo Cantrell MD MD cha [place], Tara, RN RN tw2 Ildefonso Funez RN RN [id number] Corrections: (The following items were deleted from the chart) 08:30 08:18 04/27/2019 08:18 Discharged to Home. Impression: Dysuria; Retention of urine, tw2 unspecified. Condition is Stable. Forms are Medication Reconciliation Form, Thank You Letter, Antibiotic Education, Prescription Opioid Use. Follow up: Private Physician; When: 2 - 3 days; Reason: Recheck today's complaints, Continuance of care, Re-evaluation by your physician. Problem is new. Symptoms are resolved. josr
--- NOTE | 2019-04-27 08:19 | ER ---
Nurse's Notes [facility] Yuniel Name: Hosea Guillen Age: 73 yrs Sex: Female : 1945 Arrival Date: 04/27/2019 Time: 07:27 Bed 16 Private MD: Diagnosis: Dysuria;Retention of urine, unspecified Presentation: 04/27 07:27 Presenting complaint: EMS states: pt has been to [facility] for UTI recently, on tw Cephalexin, pt requests to come here, vs stable, Hx: HTN, osteoarthritis. Transition of care: patient was not received from another setting of care. Onset of symptoms was April 27, 2019. Risk Assessment: Do you want to hurt yourself or someone else? Patient reports no desire to harm self or others. Initial Sepsis Screen: Does the patient meet any 2 criteria? No. Patient's initial sepsis screen is negative. Does the patient have a suspected source of infection? No. Patient's initial sepsis screen is negative. Care prior to arrival: None. 07:27 Method Of Arrival: EMS: [facility] tw2 07:27 Acuity: ANNE 3 tw2 Triage Assessment: 07:31 General: Appears in no apparent distress. obese, Behavior is calm, cooperative, tw2 appropriate for age. Pain: Complains of pain in pelvis. EENT: No signs and/or symptoms were reported regarding the EENT system. Neuro: Level of Consciousness is awake, alert, obeys commands, Oriented to person, place, time, situation. Cardiovascular: Heart tones S1 S2 Patient's skin is warm and dry. Respiratory: Airway is patent Respiratory effort is even, unlabored, Respiratory pattern is regular, symmetrical, Breath sounds are clear bilaterally. GI: No signs and/or symptoms were reported involving the gastrointestinal system. Abdomen is round non-distended, obese, Bowel sounds present X 4 quads. : Reports burning with urination. Derm: No signs and/or symptoms reported regarding the dermatologic system. Musculoskeletal: Range of motion: intact in all extremities. Historical: - Allergies: 07: Codeine; tw2 07:31 Morphine; tw2 - Home Meds: 07:31 eukntbipba-bbtlyawlp-bxttvrooekyhcwgdxgl Oral [Active]; Haldol Oral 5 mg [Active]; tw2 Triamterene-Hydrochlorothiazid Oral [Active]; loratadine 10 mg oral TbDL 1 tab once daily [Active]; Nitrofurantoin Macrocrystal Oral [Active]; - PMHx: 07:31 Hypertension; UTI; osteoarthritis; tw2 - PSHx: 07:31 Tubal ligation; Thyroidectomy; tw2 - Immunization history:: Adult Immunizations. - Social history:: Smoking status: . - Ebola Screening: : Patient denies travel to an Ebola-affected area in the 21 days before illness onset. - Family history:: not pertinent. Screenin:33 Abuse screen: Denies threats or abuse. Denies injuries from another. Nutritional hb screening: No deficits noted. Tuberculosis screening: No symptoms or risk factors identified. Fall Risk None identified. Assessment: :33 Reassessment: see triage assesment. tw2 08:28 Reassessment: Patient appears in no apparent distress at this time. No changes from tw2 previously documented assessment. Patient and/or family updated on plan of care and expected duration. Pain level reassessed. Patient is alert, oriented x 3, equal unlabored respirations, skin warm/dry/pink. Vital Signs: 07:28 BP 169 / 93; Pulse 74; Resp 17; Pulse Ox 98% on R/A; Weight 88.45 kg (R); Height 5 ft. tw2 3 in. (160.02 cm) (R); Pain 7/10; 07:31 Temp 98.5(O); tw2 08:28 BP 166 / 77; Pulse 82; Resp 17; Pulse Ox 99% on R/A; tw2 07:28 Body Mass Index 34.54 (88.45 kg, 160.02 cm) tw2 ED Course: 07:27 Patient arrived in ED. tw2 07:27 Bed in low position. Call light in reach. map editor on. Pulse ox on. NIBP on. tw2 07:28 Alejo Cantrell MD is Attending Physician. josr 07:28 Triage completed. tw2 07:28 Arm band placed on. tw2 07:33 Pamela Dunaway RN is Primary Nurse. tw2 07:38 Bladder scan completed. 177 ml. hb 07:47 Cain cath inserted, using sterile technique, 18 Fr., by ks, balloon inflated, to tw2 gravity drainage, urine specimen collected. returned clear yellow urine. Patient tolerated well. RD Little served as webfed offset press operator. 08:17 EKG done, by orthotic finish grinding technician. dt2 08:18 Urine Microscopic Only Sent. tw2 08:27 No provider procedures requiring assistance completed. Cain cath removed intact, tw2 balloon deflated, pt tolerated well, Deejay Crabtree served as webfed offset press operator. Patient did not have IV access during this emergency room visit. Administered Medications: 08:27 Drug: Bactrim (160 mg-800 mg (DS) 1 tablet Route: PO; tw2 08:30 Follow up: Response: No adverse reaction tw2 Output: 07:46 Urine: 200ml (Cain); Total: 200ml. tw2 Outcome: 08:18 Discharge ordered by . josr 08:29 Discharged to home ambulatory. tw2 08:29 Condition: stable 08:29 Discharge instructions given to patient, Instructed on discharge instructions, follow up and referral plans. medication usage, Demonstrated understanding of instructions, follow-up care, medications, Prescriptions given X 2. 08:30 Patient left the ED. tw2 Signatures: Alejo Cantrell MD MD cha Baxter, Heather, RN RN Pamela Dunaway RN RN tw2 Teressa Bond dt2
[2019-04-27] MEDS ORDERED: SMZ./TMP. 800/160 MG TABLET ONE (08:24)
[2019-04-27 08:43] VITALS: BP 166/77; TEMP 98.5; O2SAT 99
[2019-04-27 08:43] LABS: Urine Bacteria <20 /HPF (<20); Urine Culture Reflex Order NOT NEEDED; Urine Mucus 1+ /HPF (NONE SEEN); Urine RBC <5 /HPF (NONE SEEN)
--- NOTE | 2019-04-27 09:19 | EKG ---
Test Date: 2019-04-27 Test Time: 07:53:12 Periodontal Assistant: AARON MEASUREMENT RESULTS: Intervals: Rate: 68 MT: 174 QRSD: 90 QT: 400 QTc: 425 [place]: P: 47 MT: 174 QRS: 35 T: 53 INTERPRETIVE STATEMENTS: Normal sinus rhythm Normal ECG Compared to ECG 04/23/2018 20:44:34 Ventricular premature complex(es) no longer present Electronically Signed On 04-27-19 09:18:46 CDT by Jamir Barrett
== END 2019-04-27 08:30 | disposition home or self-care (01) ==
LOC: ER 07:25
DX: R30.0 Dysuria (principal); R33.9 Retention of urine, unspecified; I10 Essential (primary) hypertension; Z88.5 Allergy status to narcotic agent
CPT/HCPCS: 51702; 81003; 81015; 93005; 99285

== ENCOUNTER 2019-05-21 20:46 | Emergency (ER) | payer OTHER ==
--- OUTSIDE RECORDS SUMMARY | 2019-05-21 20:48 | XMS REPORT | Summary of Care ---
:1945 Author Organization [facility] Address [address] [place] [address] Care Team Providers Name Role Phone 1, [facility] Lab Unavailable Unavailable Yoel Hernández MD Unavailable Brandon Amanda MD Primary Care Provider Reason for Referral (Routine) Status Reason Specialty Diagnoses / Referred By Contact Referred To Procedures Contact New Request Diagnoses Urinary retention Eliane Sandra King, James C Procedures Discharge Follow-up: PCP BRANDON AMANDA III; 1 Week DO NALINI MD [address] [place] [address] [place] [address] [address] [place] [address] Reason for Visit Reason Comments URINARY TRACT INFECTION Retention Auth/Cert Status Reason Specialty Diagnoses / Referred By Referred To Procedures Contact Contact Emergency Medicine [facility] Emergency Dept [address] [place] [address] [place] [address] Encounter Details Date Type Department Care Team Description 04/28/2019 Emergency ADC-Emergency Eliane Sandra, Urinary retention Department DO (Primary Dx) [address] [place] [address] [place] [address] [id number] [phone] Allergies Active Allergy Reactions Severity Noted Date Comments Codeine Anxiety High 05/27/2006 Iodine Swelling 04/10/2017 "makes me sore" Morphine Anxiety 04/13/2016 documented as of this encounter (statuses as of 04/28/2019) Medications Medication Sig Dispensed Refills Start Date [...] days. docusate 100 mg Take 1 capsule by 30 capsule 0 03/31/2019 04/30/2019 Active capsuleIndications: mouth daily for Hyponatremia 30 days. metoprolol succinate Take 1 tablet [...] tabletIndications: times daily with Right hip pain, meals. 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.] Sign Reading Time Taken Comments Blood Pressure 162/74 04/28/2019 7:25 AM CDT Pulse 72 04/28/2019 7:25 AM CDT Temperature 36.5 C (97.7 F) 04/28/2019 7:25 AM CDT Respiratory Rate 18 04/28/2019 7:25 AM CDT Oxygen Saturation 97% 04/28/2019 7:25 AM CDT Inhaled Oxygen Concentration - - Weight 77.1 kg (170 lb) 04/28/2019 7:25 AM CDT Height 162.6 cm (5' 4") 04/28/2019 7:25 AM CDT Body Mass Index 29.18 04/28/2019 7:25 AM CDT documented in this encounter Discharge Instructions Eliane Stringer DO - 04/28/2019DIAGNOSIS 1. Urinary Retention NO LIFE-THREATENING FINDINGS ON TODAY'S EXAM. PROCEDURES IN THE ER TODAY: Cain placement MEDICATIONS ADMINISTERED IN THE ER TODAY: None YOUR PRESCRIPTIONS AND [id number] MEDICATION RECOMMENDATIONS: Please continue the antibiotics prescribed to you by the other emergency department. SPECIAL CARE INSTRUCTIONS: Please follow-up with your primary care physician in one week. FOLLOW-UP RECOMMENDATIONS: RECOMMEND FOLLOW-UP WITH A PRIMARY CARE PROVIDER OR SPECIALIST IN 2-5 DAYS, ESPECIALLY IF NO IMPROVEMENT IN SYMPTOMS. TO FOLLOW-UP WITHIN THE [facility], TRY THESE OPTIONS (CLINIC APPOINTMENTS AVAILABLE ON [id number] BASIS): 1. SCHEDULE AN APPOINTMENT ONLINE AT WWW.[facility] 2. OR CALL THE [facility] ACCESS CENTER AT OR 3. OR CALL YOUR [facility] PHYSICIAN'S OFFICE DIRECTLY IF YOU ARE ALREADY AN ESTABLISHED [facility] PATIENT. OR, YOU MAY FOLLOW-UP WITH A PROVIDER OF YOUR CHOICE, SUCH : 1. A PHYSICIAN OF YOUR CHOICE 2. [facility], . LOCATIONS IN [facility] 3. [facility], [address] [place] [address]; RETURN TO ER FOR WORSENING OF SYMPTOMS. AttachmentsThe following attachments cannot be sent through Care Everywhere.Urinary Retention, Female (Bruneian)Cain Catheter, Care (Bruneian) documented in this encounter Plan of Treatment Health Maintenance Due Date Last Done Comments [...] encounter Procedures Procedure Name Priority Date/Time Associated Diagnosis Comments URINALYSIS STAT 04/28/2019 7:47 AM Urinary retention Results for this CDT procedure are in the results section. documented in this encounter Results Urinalysis (04/28/2019 7:47 AM CDT) APPEARANCE Clear Clear [facility] COLOR Yellow Yellow [facility] PH 7.5 4.8 - 8.0 [facility] SP GRAVITY 1.015 1.003 - 1.030 [facility] GLU U QUAL Negative Negative [facility] BLOOD Negative Negative [facility] KETONES Negative Negative [facility] PROTEIN Negative Negative [facility] UROBILIN 0.2 mg/dL 0-1.0 mg/dL [facility] BILIRUBIN Negative Negative [facility] NITRITE Negative Negative [facility] LEUK FRANCY Negative Negative [facility] RBC/HPF 3 0 - 3 HPF [facility] WBC/HPF 2 0 - 5 HPF [facility] BACTERIA Few (A) Negative [facility] MUCOUS Slight (A) Negative LPF [facility] AMORPHOUS Few HPF [facility] SQ EPITH 1 HPF [facility] TRANS EPI 1 <=1 HPF [facility] Specimen Urine - URINE, CATHETERIZED Performing Organization Address City/State/Zipcode Phone Number [facility] CLIA: [id number], [address] [place] [address] documented in this encounter Visit Diagnoses Diagnosis Urinary retention - Primary Retention of urine, unspecified documented in this encounter Insurance Payer Benefit Plan / Subscriber ID Effective Phone Address Type Group Dates [facility] [id number] 2017-Pres Medicare HEALTHCARE - HEALTHCARE ent Adv HMO MANAGED DUAL COMPLETE MEDICARE HMO TMHP MEDICAID OF xxxxxxxxx 2018-Pres [phone] Medicaid [place] ent [id number] [place] [address] documented as of this encounter Advance Directives Name Relationship Healthcare Agent Communication Relationship Xavier Martinez Child Primary healthcare agent [phone] Mindy (Mobile) Jh Claros Child Primary healthcare agent
--- OUTSIDE RECORDS SUMMARY | 2019-05-21 20:48 | XMS REPORT | Summary of Care ---
:1945 Author Organization [facility] Address [address] [place] [address] Care Team Providers Name Role Phone 1, [facility] Lab Unavailable Unavailable Yoel Hernández MD Unavailable Ildefonso Amanda MD Primary Care Provider Reason for Visit Reason Comments Notification health maintenance Encounter Details Date Type Department Care Team Description 05/03/2019 Telephone [facility] Ildefonso Amanda III, Notification ( health and Outreach MD maintenance) [address] [place] [address] [address] [place] [phone] Allergies Active Allergy Reactions Severity Noted Date Comments Codeine Anxiety High 05/27/2006 Iodine Swelling 04/10/2017 "makes me sore" Morphine Anxiety 04/13/2016 documented as of this encounter (statuses as of 05/03/2019) Medications Medication Sig Dispensed Refills Start Date End Date Status aspirin 81 mg Take 1 tablet by 30 tablet 2 04/01/2019 06/30/2019 Active chewable mouth daily with tabletIndications: breakfast for 90 Hyponatremia days. atorvastatin 40 mg Take 1 tablet by 30 tablet 2 03/31/2019 06/29/2019 Active tabletIndications: mouth at bedtime Hyponatremia for 90 days. naproxen sodium Take 1 tablet by 30 tablet 0 04/20/2019 Active (ANAPROX DS) 550 mg mouth 2 (two) tabletIndications: times daily with Right hip pain, Acute meals. 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.] of this encounter Last Filed Vital Signs Not on filedocumented in this encounter Plan of Treatment Health [...] COLONOSCOPY Discontinued documented as of this encounter Results Not on filedocumented in this encounter Insurance Payer Benefit Plan / Subscriber ID Effective Phone Address Type Group Dates [facility] [id number] 2017-Pres Medicare HEALTHCARE - HEALTHCARE ent Adv HMO MANAGED DUAL COMPLETE MEDICARE HMO TMHP MEDICAID OF xxxxxxxxx 2018-Pres [phone] Medicaid [place] ent [id number] [place] [address] [facility] xxxxxxxxx 2018-Pres Medicaid HEALTHCARE PLUS ent COMM PLAN - MANAGED MEDICAID documented as of this encounter Advance Directives Name Relationship Healthcare Agent Communication Relationship Xavier Martinez Child Primary healthcare agent [phone] Mindy (Mobile) Jh Claros Child Primary healthcare agent
--- OUTSIDE RECORDS SUMMARY | 2019-05-21 20:48 | XMS REPORT ---
:1945 Author Organization [facility] Address [address] [place] [address] Dr. Serrato [address] [place] [address] Care Team Providers Name Role Phone Unavailable Unavailable Unavailable Problems This patient has no known problems. Allergies, Adverse Reactions, Alerts This patient has no known allergies or adverse reactions. Medications This patient has no known medications.
--- OUTSIDE RECORDS SUMMARY | 2019-05-21 20:48 | XMS REPORT | Summary of Care ---
:1945 Author Organization [facility] Address [address] [place] [address] Care Team Providers Name Role Phone 1, Adc Lab Unavailable Unavailable Yoel Hernández MD Unavailable Ildefonso Amanda MD Primary Care Provider Reason for Visit Reason Comments Urinary Problem Auth/Cert Status Reason Specialty Diagnoses / Referred By Referred To Procedures Contact Contact Emergency Medicine [facility] Emergency Dept [address] [place] [address] [place] [address] Encounter Details Date Type Department Care Team Description 04/30/2019 Emergency ADC-Emergency Fahad Ventura APN [address] [facility] [place] [address] Urinary retention Department Christiano Maza MD [address] [place] [address] [id number] [place] [address] (Primary Dx) [address] [place] [address] [place] [address] Allergies Active Allergy Reactions Severity Noted Date Comments Codeine Anxiety High 05/27/2006 Iodine Swelling 04/10/2017 "makes me sore" Morphine Anxiety 04/13/2016 documented as of this encounter (statuses as of 04/30/2019) Medications Medication Sig Dispensed Refills Start Date [...] as of this encounter (statuses as of 04/30/2019) Active Problems Problem Noted Date Stenosis of [...] Essential hypertension 05/27/2006 Overview: ICD10 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.] Sign Reading Time Taken Comments Blood Pressure 150/85 04/30/2019 2:02 PM CDT Pulse 97 04/30/2019 2:02 PM CDT Temperature 36.9 C (98.5 F) 04/30/2019 2:02 PM CDT Respiratory Rate 15 04/30/2019 2:02 PM CDT Oxygen Saturation 96% 04/30/2019 2:02 PM CDT Inhaled Oxygen Concentration - - Weight 77.1 kg (170 lb) 04/30/2019 2:02 PM CDT Height - - Body Mass Index 29.18 04/28/2019 7:25 AM CDT documented in this encounter Discharge Instructions Christiano Felix MD - 04/30/2019 DIAGNOSIS Diagnoses that have been ruled out: None Diagnoses that are still under consideration: None Final diagnoses: Urinary retention NO LIFE-THREATENING FINDINGS ON TODAY'S EXAM. PROCEDURES IN THE ER TODAY: No orders of the defined types were placed in this encounter. MEDICATIONS ADMINISTERED IN THE ER TODAY: No orders of the defined types were placed in this encounter. YOUR PRESCRIPTIONS AND [id number] MEDICATION RECOMMENDATIONS: Continue home medications SPECIAL CARE INSTRUCTIONS: Follow up with Urology FOLLOW-UP RECOMMENDATIONS: RECOMMEND FOLLOW-UP WITH A PRIMARY CARE PROVIDER OR SPECIALIST IN 2-5 DAYS, ESPECIALLY IF NO IMPROVEMENT IN SYMPTOMS. TO FOLLOW-UP WITHIN THE [facility], TRY THESE OPTIONS (CLINIC APPOINTMENTS AVAILABLE ON [id number] BASIS): 1. SCHEDULE AN APPOINTMENT ONLINE AT WWW.[facility] 2. OR CALL THE [facility] ACCESS CENTER AT OR 3. OR CALL YOUR [facility] PHYSICIAN'S OFFICE DIRECTLY IF YOU ARE ALREADY AN ESTABLISHED [facility] PATIENT. OR, YOU MAY FOLLOW-UP WITH A PROVIDER OF YOUR CHOICE, SUCH : 1. A PHYSICIAN OF YOUR CHOICE 2. [facility], . LOCATIONS IN [facility] 3. [facility], [address] [place] [address]; RETURN TO ER FOR WORSENING OF SYMPTOMS. AttachmentsThe following attachments cannot be sent through Care Everywhere.Cain Catheter, Care (Georgian)Urinary Retention, Female (Georgian) documented in this encounter Plan of Treatment [...] Procedure Name Priority Date/Time Associated Diagnosis Comments CONSENT/REFUSAL FOR Routine 04/30/2019 1:55 PM CDT DIAGNOSIS AND TREATMENT documented in this encounter Results Not on filedocumented in this encounter Visit Diagnoses Diagnosis Urinary retention - Primary Retention of urine, unspecified documented in this encounter Insurance Payer Benefit Plan / Subscriber ID Effective Phone Address Type Group [facility] [id number] 2017-Prese Medicare [facility] HEALTHCARE - HEALTHCARE DUAL nt HMO MANAGED COMPLETE HMO MEDICARE [employer] [place] [employer] xxxxxxxxx 2018-[facility] Medicaid HEALTHCARE COMM PLUS nt PLAN - MANAGED MEDICAID documented as of this encounter Advance Directives Name Relationship Healthcare Agent Communication Relationship Xavier Martinez Child Primary healthcare agent [phone] Mindy (Mobile) Jh Claros Child Primary healthcare agent
--- OUTSIDE RECORDS SUMMARY | 2019-05-21 20:49 | XMS REPORT | Summary of Care ---
:1945 Author Organization [facility] [employer] Address [address] [place] [id number] Care Team Providers Name Role Phone 1, [facility] Unavailable Unavailable Yoel Hernández MD Unavailable Ildefonso Amanda MD Primary Care Provider Reason for Referral (Routine) Status Reason Specialty Diagnoses / Referred By Referred To Procedures Contact Contact New Request Location Urology Diagnoses Urinary retention [place], Preference Procedures CONSULT/REFERRAL UROLOGY MD Abdirashid [address] [place] [address] Dr Scott [address] [place] [address] (Routine) Status Reason Specialty Diagnoses / Referred By Referred To Procedures Contact Contact Authorized Public Health & Diagnoses Medicare annual wellness visit, subsequent [place], General Preventive Procedures CONSULT/REFERRAL MEDICARE ANNUAL WELLNESS VISIT MD Abdirashid [address] Scott [address] [place] [address] Reason for Visit Reason Comments Hospital F/U 04/30/2019 Encounter Details Date Type Department Care Team Description 05/10/2019 Office Visit [facility] Abdirashid Dennis, Urinary retention ( Primary Dx); Pediatric and Adult Urinary tract infection associated with catheterization of urinary tract, unspecified indwelling urinary catheter type, initial encounter; Primary Care- [address] [place] [address] Flank pain; Cody Rodriguez Medicare annual wellness visit, subsequent; [address] [facility] , [place] [address] Dysuria; [address] [place], [place] Osteoarthritis of both knees, unspecified osteoarthritis type; [place] [address] Neuropathy [id number] Allergies Active Allergy Reactions Severity Noted Date Comments Codeine Anxiety High 05/27/2006 Iodine Swelling 04/10/2017 "makes me sore" Morphine Anxiety 04/13/2016 documented as of this encounter (statuses as of 05/10/2019) Medications Medication Sig Dispensed Refills Start Date End Date Status aspirin 81 mg chewable Take 1 tablet by 30 tablet 2 04/01/2019 06/30/2019 Active tabletIndications: mouth daily with Hyponatremia breakfast for 90 days. atorvastatin 40 mg Take 1 tablet by 30 tablet 2 03/31/2019 06/29/2019 Active tabletIndications: mouth at bedtime Hyponatremia for 90 days. naproxen sodium Take 1 tablet by 30 tablet 0 04/20/2019 Active (ANAPROX DS) 550 mg mouth 2 (two) tabletIndications: times daily with Right hip pain, Acute meals. cystitis without hematuria ciprofloxacin HCl 500 Take 1 tablet by 28 tablet 0 05/10/2019 05/24/2019 Active mg tabletIndications: mouth every 12 Urinary tract (twelve) hours infection associated for 14 days. with catheterization of urinary tract, unspecified indwelling urinary catheter type, initial encounter Saccharomyces Take 1 capsule 28 capsule 0 05/10/2019 05/24/2019 Active boulardii 250 mg by mouth 2 (two) capsuleIndications: times daily for Urinary tract 14 days. infection associated with catheterization of urinary tract, unspecified indwelling urinary catheter type, initial encounter phenazopyridine Take 2 tablets 12 tablet 0 05/10/2019 05/12/2019 Active (PYRIDIUM) 100 mg by mouth 3 tabletIndications: (three) times Dysuria daily for 2 days. gabapentin 100 mg Take 1 capsule 15 capsule 0 05/10/2019 05/15/2019 Active capsuleIndications: by mouth 3 Neuropathy (three) times daily for 5 days. documented as of this encounter (statuses as of 05/10/2019) Active Problems Problem Noted Date Urinary retention 05/10/2019 Dysuria 05/10/2019 Medicare annual wellness visit, subsequent 05/10/2019 Urinary tract infection associated with catheterization of urinary tract, unspecified indwelling urinary catheter type, initial encounter Neuropathy 05/10/2019 Flank pain 05/10/2019 Stenosis of left carotid artery 03/29/2019 Acute cystitis without hematuria 03/27/2019 Hypokalemia 03/26/2019 Syncope 03/26/2019 Metabolic encephalopathy 02/04/2019 Other schizophrenia 04/20/2017 Diastolic dysfunction 03/28/2016 ABRAMS (dyspnea on exertion) 09/27/2015 Tobacco abuse 09/27/2015 Cardiac murmur 09/27/2015 Obesity 09/27/2015 Nodule of neck 06/15/2015 Osteoarthritis of both knees, unspecified osteoarthritis type 05/11/2015 S/P thyroidectomy 05/11/2015 Essential hypertension 05/27/2006 Overview: ICD10 Diagnosis Term Sled Maker Utility documented as of this encounter (statuses as of 05/10/2019) Resolved Problems Problem Noted Date Resolved Date Acute renal insufficiency 04/10/2017 04/20/2017 Preop examination 09/27/2015 04/20/2017 UTI (lower urinary tract infection) 06/15/2015 04/20/2017 Essential hypertension 05/11/2015 04/20/2017 Acute pyelonephritis 05/11/2015 04/20/2017 Paranoid schizophrenia, chronic condition with acute 05/27/2006 04/20/2017 exacerbation OD Corneal Irritation 05/27/2006 04/20/2017 documented as of this encounter (statuses as of 05/10/2019) Immunizations Name Administration Dates Next Due Influenza [...] Sign Reading Time Taken Comments Blood Pressure 110/73 05/10/2019 3:32 PM CDT Pulse 106 05/10/2019 3:32 PM CDT Temperature 36.8 C (98.2 F) 05/10/2019 3:32 PM CDT Respiratory Rate 18 05/10/2019 3:32 PM CDT Oxygen Saturation 100% 05/10/2019 3:32 PM CDT Inhaled Oxygen Concentration - - Weight 73.5 kg (162 lb 1.6 oz) 05/10/2019 3:32 PM CDT Height - - Body Mass Index 27.82 04/28/2019 7:25 AM CDT documented in this encounter Patient Instructions Patient InstructionsEdAbdirashid woods MD - 05/10/2019 3:30 PM CDT Cain Catheter Care A Cain catheter is a rubber tube that is placed through the urethra (opening where urine comes out)and into the bladder. This helps drain urine from the bladder. There is a small balloon on the end of the tube that is inflated after insertion. This keeps the catheter from sliding out of the bladder. A Cain catheter is used to treat urinary retention (unable to pass urine). It is also used when there is incontinence (loss of bladder control). Home care Finish taking any prescribed antibiotic even if you are feeling better before then. It is important to keep bacteria from getting into the collection bag. Do not disconnect the catheter from the collection bag. Use a leg band to secure the drainage tube, so it does not pull on the catheter. Drain the collection bag when it becomes full using the drain spout at the bottom of the bag. Do not try to pull or remove your catheter. This will injure your urethra. It must be removed by your healthcare provider or nurse. Follow-up care Follow up with your healthcare provider as advised for repeat urine testing and catheter removal or replacement. When to seek medical advice Call your healthcare provider right away if any of these occur: Fever of 100.4F (38C) or higher, or as directed by your healthcare provider Bladder pain or fullness Abdominal swelling, nausea or vomiting, or back pain Blood or urine leakage around the catheter Bloody urine coming from the catheter (if a new symptom) Catheter falls out Catheter stops draining for 6 hours Weakness, dizziness, or fainting Date Last Reviewed: 06/21/201619998377-1843 [employer]. [address] [place] [address]. All rights reserved. This information is not intended as a substitute for professional medical care. Always follow your healthcare professional's instructions. Catheter-Associated Urinary Tract Infections A small balloon keeps the catheter in place inside the bladder. A catheter-associated urinary tract infection (CAUTI) is an infection of the urinary system. CAUTI is caused by bacteria that enter the urinary tract when a urinary catheter is used. This is a tube thats placed into the bladder to drain urine. The urinary system This system includes the kidneys, ureters, bladder, and urethra. The kidneys filter blood and make urine. The ureters carry urine from the kidneys to the bladder. The bladder stores urine. The urethra carries urine from the bladder to the outside of the body. What is a urinary catheter? A urinary catheter is a thin, flexible tube. It is placed in the bladder to drain urine. Urine flowsthrough the tube into a collecting bag outside of the body. There are different types of urinary catheters. The most common type is an indwelling catheter. This is also known as a urethral catheter. This is because its placed into the bladder through the urethra. This catheter is also called a Cain catheter. Why is a urinary catheter needed? A urinary catheter is needed for any of the following: You cant get up to use the toilet because your mobility is limited. This may be due to surgery, an injury, or illness. You have a blockage in your urinary system. Your healthcare provider needs to measure the amount of urine you pass. The function of your kidneys and bladder is being tested. Youre not able to control your bladder (incontinence). In most cases, the urinary catheter is temporary. You'll need it only until the problem that requires it is resolved. How does a CAUTI develop? Bacteria can enter the urinary tract as the catheter is put into the urethra. Bacteria can also get into the urinary tract while the catheter is in place. The common bacteria that cause a CAUTI are ones that live in the intestine. These bacteria dont normally cause problems in the intestine. But when they get into the urinary tract, a CAUTI can result. Why is a CAUTI of concern? Left untreated, a CAUTI can lead to health problems. These problems may include bladder infection, prostate infection, and kidney infection. A CAUTI can prolong your hospital stay. If the infection is not treated in time, serious health complications may occur. What are the symptoms of a CAUTI? A burning feeling, pressure, or pain in your lower abdomen Fever or chills Urine in the collecting bag is cloudy or bloody (pink or red) Burning feeling in the urethra or genital area Aching in the back (kidney area) Nausea and vomiting Person is confused, or is not alert, or has a change in behavior (mainly affects older patients) Note that sometimes a person wont have any symptoms but may still have a CAUTI. Tell a healthcare provider right away if you or your loved one has any of these symptoms. How is CAUTI diagnosed? If you have symptoms of CAUTI your healthcare provider will order tests. These include a urine test,blood tests, and other tests as needed. How is CAUTI treated? Treatment may involve any of the following: Antibiotics. Your healthcare provider will likely prescribe antibiotics if you have symptoms. Be aware that if you dont have symptoms, you may not be given antibiotics. This is to prevent an increase in bacteria that resist (can t be killed by) certain antibiotics. Removing the catheter. The catheter will be removed when your healthcare provider decides its no longer needed. This usually helps stop the infection. Changing the catheter. If you still need a catheter, the old one will be removed. A new one will be put in. This may help stop the infection. How do hospital and long-term facility staff prevent CAUTI? To keep patients from getting a CAUTI, the staff follow certain procedures: Prescribe a catheter only when its needed. It is removed as soon as it s no longer needed. Use sterile (clean) technique when placing the catheter into the urinary tract. This means beforeputting the catheter in, the caregiver washes his or her hands with soap and water. He or she then puts on sterile gloves. A sterile catheter kit that has cleansers is used to cleanse the patients genital area. Before performing catheter care, caregivers also wash their hands or use an alcohol-based hand cleanser. Hang the bag lower than your bladder. This prevents urine from flowing back into your bladder. Ensure that the bag is emptied regularly. What you can do as a patient to prevent CAUTI You can help prevent yourself from getting a CAUTI by doing the following: Every day ask your healthcare provider how long you need to have the catheter. The longer you have a catheter, the higher your chance of getting a CAUTI. If a caregiver doesnt clean his or her hands and put on gloves before touching your catheter, ask them to do so. If youve been taught how to care for your catheter, be sure to wash your hands before and after each session. Make sure your bag is lower than your bladder. If its not, tell your caregiver. Dont disconnect the catheter and drain tube. Doing so allows germs to get into the catheter. Cleansing of the genital and perineal areas is very important to help decrease bacteria in areas surrounding the catheter. Ask your doctor what you should use and how often to clean these areas. If you are discharged with an indwelling catheter Before you leave the hospital, make sure you understand the instructions on how to care for your catheter at home. Ask your healthcare provider how long you need the catheter. Also ask if you need to make a follow-up appointment to have the catheter removed. Always use sterile (clean) technique when caring for your catheter. Wash your hands before and after doing any catheter care. Call your healthcare provider right away if you develop symptoms of a CAUTI ( see above). Date Last Reviewed: 09/21/201619995539-7381 [employer]. [address] [place] [address]. All rights reserved. This information is not intended as a substitute for professional medical care. Always follow your healthcare professional's instructions. documented in this encounter Progress Notes Abdirashid Dennis MD - 05/10/2019 3:30 PM CDT Cc: Chief Complaint Patient presents with Hospital F/U 04/30/2019 Fahad Guillen is a 73 year old female. Patient with Phx acute pyelonephritis, anxiety, arthritis, asthma, cardiac murmur, depression, dyspnea on exertion, HTN and prediabetes with recurrent UTI presents with c/o painful urination x 1 week. She is s/p catherization for urinary retention. Patient was seen at the emergency department on 04/30/2019 for inability to void. Cain catheter was placed to empty patient's bladder. Patient's family reports incidents of urinary retention complicated by UTI. Today, patient reports urge to urinate but often cannot, requiring cath. She reports flank pain x 1week. Denies F/C/N/V chest pain or SOB. Allergies Fahad is allergic to codeine; iodine; and morphine. Medications Outpatient Medications Prior to Visit Medication Sig Dispense Refill naproxen sodium (ANAPROX DS) 550 mg tablet Take 1 tablet by mouth 2 (two) times daily with meals. 30 tablet 0 aspirin 81 mg chewable tablet Take 1 tablet by mouth daily with breakfast for 90 days. 30 tablet2 atorvastatin 40 mg tablet Take 1 tablet by mouth at bedtime for 90 days. 30 tablet 2 No facility-administered medications prior to visit. Histories Past Medical History: Diagnosis Date Acute pyelonephritis 05/11/2015 Anxiety Arthritis Asthma Cardiac murmur 09/27/2015 Depression ABRAMS (dyspnea on exertion) 09/27/2015 Essential hypertension 05/27/2006 ICD10 Diagnosis Term Sled Maker Utility Obesity Other and unspecified hyperlipidemia Other schizophrenia 04/20/2017 Prediabetes Thyroid disease Tobacco abuse 09/27/2015 UTI (lower urinary tract infection) Past Surgical History: Procedure Laterality Date PARTIAL THYROIDECTOMY Right 12/31/2015 Surgeon: Irais Samaniego; Location: [facility] TUBAL LIGATION Social History Socioeconomic History Marital status: Spouse name: Not on file Number of children: Not on file Years of education: Not on file Highest education level: Not on file Occupational History Not on file Social Needs Financial resource strain: Not on file Food insecurity: Worry: Not on file Inability: Not on file Transportation needs: Medical: Not on file Non-medical: Not on file Tobacco Use Smoking status: Current Every Day Smoker Packs/day: 0.50 Years: 30.00 Pack years: 15.00 Types: Cigarettes Smokeless tobacco: Never Used Tobacco comment: 1PPD x since t was 13 years old Substance and Sexual Activity Alcohol use: No Alcohol/week: 0.0 oz Drug use: No Sexual activity: Not Currently Lifestyle Physical activity: Days per week: Not on file Minutes per session: Not on file Stress: Not on file Relationships Social connections: Talks on phone: Not on file Gets together: Not on file Attends lutheran service: Not on file Active member of club or organization: Not on file Attends meetings of clubs or organizations: Not on file Relationship status: Not on file Intimate partner violence: Fear of current or ex partner: Not on file Emotionally abused: Not on file Physically abused: Not on file Forced sexual activity: Not on file Other Topics Concern Not on file Social History Narrative No domestic violence or abuse Family History Problem Relation Age of Onset Heart Sister Hypertension Sister Asthma Brother Arthritis Maternal Aunt Hypertension Maternal Grandmother Arthritis Paternal Grandmother Neurological Paternal Grandmother Stroke Paternal Grandmother Hypertension Paternal Grandmother Depression Mother defects NoFHx Breast Cancer NoFHx Colon Cancer NoFHx Ovarian Cancer NoFHx Uterine Cancer NoFHx Cancer NoFHx Diabetes NoFHx Genetic NoFHx High cholesterol NoFHx Mental retardation NoFHx Osteoporosis NoFHx Psychiatry NoFHx Other - see comments NoFHx Review of Systems Constitutional: Negative for chills and fever. Respiratory: Negative. Cardiovascular: Negative. Gastrointestinal: Negative. Negative for abdominal pain, constipation and diarrhea. Genitourinary: Positive for flank pain and difficulty urinating. Skin: Negative. Neurological: Negative. Psychiatric/Behavioral: Negative. Endocrine: Endocrine negative Vital Signs BP 110/73 (BP Location: Left arm, Patient Position: Sitting, BP CUFF SIZE: Adult Large) | Pulse 106 | Temp 36.8 C (98.2 F) (Temporal Artery) | Resp 18 | Wt 162 lb 1.6 oz (73.5 kg) | LMP (LMP Unknown) | SpO2 100% | BMI 27.82 kg/m Physical Exam Constitutional: She is oriented to person, place, and time. She appears well- developed. No distress. Eyes: Pupils are equal, round, and reactive to light. EOM are normal. Neck: Normal range of motion. Neck supple. Cardiovascular: Normal rate and regular rhythm. Pulmonary/Chest: Effort normal and breath sounds normal. Abdominal: Soft. Bowel sounds are normal. Right flank pain noted on examination with discomfort on abdominal palpation, generalized Musculoskeletal: Normal range of motion. Neurological: She is alert and oriented to person, place, and time. Skin: Skin is warm. Capillary refill takes less than 2 seconds. Psychiatric: She has a normal mood and affect. Assessment/Plan Hx Urinary retention - Complicated by hx frequent UTI s/p catherization - Right flank pain on examination with generalized abdominal discomforts - Self reported Dysuria per patient - Continue self cath at home, need to go to nearest Urgent Care center or ER if unable to void for more the 12Hrs - Labs: per order - Referral: Urology - Start Ciprofloxacin 500mg PO BID x 14 days with probiotics Osteoarthritis of both knees, unspecified osteoarthritis type - Complicated by hx neuropathy - Conservative pain management - Medication refill: gabapentin Medicare annual wellness visit, subsequent - Referral: Medicare wellness examination completed RTC 2 weeks, sooner with concerns Preventive Care: Medication reconciliation, patient education and anticipatory guidance completed. All questions and concerns addressed. >50% of visit was for counseling and coordination of care with patient as documented under plans above. Total visit time 30 Minutes. Abdirashid Dennis MD 05/10/2019 6:01 PM documented in this encounter Plan of Treatment Date Type Specialty Care Team Description 05/24/2019 Office Visit Family Medicine Abdirashid Dennis MD [address] [place] [address] Dr Scott [address] [place] [id number] [phone] Name Type Priority Associated Diagnoses Order Schedule SEDIMENTATION RATE LAB Routine Urinary tract infection Ordered: 05/10/2019 associated with catheterization of urinary tract, unspecified indwelling urinary catheter type, initial encounter C-REACTIVE PROTEIN LAB Routine Urinary tract infection Ordered: 05/10/2019 associated with catheterization of urinary tract, unspecified indwelling urinary catheter type, initial encounter CBC WITH DIFF LAB Routine Urinary tract infection Ordered: 05/10/2019 associated with catheterization of urinary tract, unspecified indwelling urinary catheter type, initial encounter COMP. METABOLIC PANEL LAB Routine Urinary tract infection Ordered: 2018 ([id number]) associated with catheterization of urinary tract, unspecified indwelling urinary catheter type, initial encounter URINE CULTURE LAB Routine Urinary tract infection Ordered: 05/10/2019 associated with catheterization of urinary tract, unspecified indwelling urinary catheter type, initial encounter CBC WITH DIFFERENTIAL LAB Routine Urinary tract infection Ordered: 2018 associated with catheterization of urinary tract, unspecified indwelling urinary catheter type, initial encounter Health Maintenance Due Date Last Done Comments DTaP,Tdap,and Td Vaccines (1 - Tdap) 1962 MAMMOGRAM 1983 Zoster Recombinant Vaccine 1993 (SHINGRIX) (1 of 2) LUNG CANCER SCREEN: Recommended for 1998 age 55-80 with 30 + pack year history Medicare Wellness Visit 2008 Osteoporosis Screening 2008 PNEUMOCOCCAL VACCINES 65+ (2 of 2 - 07/11/2017 07/11/2016 PPSV23) INFLUENZA VACCINE (#1) 2019 06/23/2018, 07/03/2017, 07/11/2016 COLONOSCOPY Discontinued documented as of this encounter Results Not on filedocumented in this encounter Visit Diagnoses Diagnosis Urinary retention - Primary Retention of urine, unspecified Urinary tract infection associated with catheterization of urinary tract, unspecified indwelling urinary catheter type, initial encounter Flank pain Abdominal pain, unspecified site Medicare annual wellness visit, subsequent Routine general medical examination at a health care facility Dysuria Osteoarthritis of both knees, unspecified osteoarthritis type Neuropathy Mononeuritis of unspecified site documented in this encounter Insurance Payer Benefit Plan / Subscriber ID Effective Phone Address Type Group Dates [facility] [id number] 2017-Prese Medicare Adv HEALTHCARE - HEALTHCARE DUAL nt HMO MANAGED COMPLETE HMO MEDICARE [facility] xxxxxxxxx 2018-Prese Medicaid HEALTHCARE COMM PLUS nt PLAN - MANAGED MEDICAID documented as of this encounter Advance Directives Name Relationship Healthcare Agent Communication Relationship Xavier Martinez Child Primary healthcare agent [phone] Mindy (Mobile) Jh Claros Child Primary healthcare agent
--- OUTSIDE RECORDS SUMMARY | 2019-05-21 20:49 | XMS REPORT | Summary of Care ---
:1945 Author Organization [facility] Address [address] [place] [address] Care Team Providers Name Role Phone 1, Adc Lab Unavailable Unavailable Yoel Hernández MD Unavailable Ildefonso Amanda MD Primary Care Provider Reason for Visit Reason Comments Medicare Annual Wellness Encounter Details Date Type Department Care Team Description 05/11/2019 Pre Visit Outreach [facility] Abdirashid Dennis, Medicare Annual Pediatric and Adult Wellness Primary Care- [address] [place] [address] [address] [address] , [address] [place] [phone] Allergies Active Allergy Reactions Severity Noted Date Comments Codeine Anxiety High 05/27/2006 Iodine Swelling 04/10/2017 "makes me sore" Morphine Anxiety 04/13/2016 documented as of this encounter (statuses as of 05/13/2019) Medications Medication Sig Dispensed Refills Start Date End Date Status aspirin 81 mg chewable Take 1 tablet 30 tablet 2 04/01/2019 06/30/2019 Active tabletIndications: by mouth daily Hyponatremia with breakfast for 90 days. atorvastatin 40 mg Take 1 tablet 30 tablet 2 03/31/2019 06/29/2019 Active tabletIndications: by mouth at Hyponatremia bedtime for 90 days. naproxen sodium Take 1 tablet 30 tablet 0 04/20/2019 Active (ANAPROX DS) 550 mg by mouth 2 tabletIndications: (two) times Right hip pain, Acute daily with cystitis without meals. hematuria ciprofloxacin HCl 500 Take 1 tablet 28 tablet 0 05/10/2019 05/24/2019 Active mg tabletIndications: by mouth every Urinary tract 12 (twelve) infection associated hours for 14 with catheterization days. of urinary tract, unspecified indwelling urinary catheter type, initial encounter Saccharomyces Take 1 capsule 28 capsule 0 05/10/2019 05/24/2019 Active boulardii 250 mg by mouth 2 capsuleIndications: (two) times Urinary tract daily for 14 infection associated days. with catheterization of urinary tract, unspecified indwelling urinary catheter type, initial encounter gabapentin 100 mg Take 1 capsule 15 capsule 0 05/10/2019 05/15/2019 Active capsuleIndications: by mouth 3 Neuropathy (three) times daily for 5 days. phenazopyridine Take 2 tablets 12 tablet 0 05/10/2019 05/12/2019 (PYRIDIUM) 100 mg by mouth 3 tabletIndications: (three) times Dysuria daily for 2 days. 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.] filedocumented in this encounter Plan of Treatment Date Type Specialty Care Team Description 05/24/2019 Office Visit Family Medicine Abdirashid Dennis MD [address] [place] [address] Dr Scott [address] [place] [address] [phone] Health Maintenance Due Date Last Done Comments [...] ID Effective Phone Address Type Group Dates [place] [id number] 2017-Pres Medicare HEALTHCARE - HEALTHCARE ent Adv HMO MANAGED DUAL COMPLETE MEDICARE HMO TMHP MEDICAID OF xxxxxxxxx 2018-Pres [phone] [place] ent [id number] [place] [address] [facility] STAR xxxxxxxxx 2018-Pres Medicaid HEALTHCARE PLUS ent COMM PLAN - MANAGED MEDICAID documented as of this encounter Advance Directives Name Relationship Healthcare Agent Communication Relationship Xavier Martinez Child Primary healthcare agent [phone] Mindy (Mobile) Jh Claros Child Primary healthcare agent
--- OUTSIDE RECORDS SUMMARY | 2019-05-21 20:49 | XMS REPORT | Summary of Care ---
:1945 Author Organization [facility] Address [address] [place] [address] Care Team Providers Name Role Phone 1, Adc Lab Unavailable Unavailable Yoel Hernández MD Unavailable Ildefonso Amanda MD Primary Care Provider Reason for Visit Reason Comments Medicare Annual Wellness Encounter Details Date Type Department Care Team Description 05/11/2019 Pre Visit Outreach [facility] Abdirashid Dennis, Medicare Annual Pediatric and Adult Wellness Primary Care- [address] [place] [address] [address] [address] , [address] [place] [phone] Allergies Active Allergy Reactions Severity Noted Date Comments Codeine Anxiety High 05/27/2006 Iodine Swelling 04/10/2017 "makes me sore" Morphine Anxiety 04/13/2016 documented as of this encounter (statuses as of 05/11/2019) Medications Medication Sig Dispensed Refills Start Date [...] as of this encounter (statuses as of 05/11/2019) Active Problems Problem Noted Date Urinary retention [...] Essential hypertension 05/27/2006 Overview: ICD10 Diagnosis 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 as of this encounter (statuses as of 05/11/2019) Resolved Problems Problem Noted Date Resolved Date Acute renal insufficiency 04/10/2017 04/20/2017 Preop examination 09/27/2015 04/20/2017 UTI (lower urinary tract infection) 06/15/2015 04/20/2017 Essential hypertension 05/11/2015 04/20/2017 Acute pyelonephritis 05/11/2015 04/20/2017 Paranoid schizophrenia, chronic condition with acute 05/27/2006 04/20/2017 exacerbation OD Corneal Irritation 05/27/2006 04/20/2017 documented as of this encounter (statuses as of 05/11/2019) Immunizations Name Administration Dates Next Due Influenza [...] Office Visit Family Medicine Abdirashid Dennis MD [address] [place] [address] Dr [address] [place] [address] [phone] Health Maintenance Due Date Last Done Comments [...] ID Effective Phone Address Type Group Dates [facility] [id number] 2017-Pres Medicare HEALTHCARE - HEALTHCARE ent Adv HMO MANAGED DUAL COMPLETE MEDICARE HMO TMHP MEDICAID OF xxxxxxxxx 2018-Pres [phone] [place] ent [id number] [place] [address] [facility] STAR xxxxxxxxx 2018-Pres Medicaid HEALTHCARE PLUS ent COMM PLAN - MANAGED MEDICAID documented as of this encounter Advance Directives Name Relationship Healthcare Agent Communication Relationship Xavier Martinez Child Primary healthcare agent [phone] Mindy (Mobile) Jh Claros Child Primary healthcare agent
--- OUTSIDE RECORDS SUMMARY | 2019-05-21 20:49 | XMS REPORT | Summary of Care ---
:1945 Author Organization [facility] [employer] Address [address] [place] [address] Care Team Providers Name Role Phone 1, Adc Lab Unavailable Unavailable Yoel Hernández MD Unavailable Ildefonso Amanda MD Primary Care Provider Reason for Referral (Routine) Status Reason Specialty Diagnoses / Referred By Referred To Procedures Contact Contact New Request Location Urology Diagnoses Urinary retention [place], Preference Procedures CONSULT/REFERRAL UROLOGY MD Abdirashid [address] [place] [address] Dr Scott [address] [place] [address] (Routine) Status Reason Specialty Diagnoses / Referred By Referred To Procedures Contact Contact Authorized Public Health & Diagnoses Medicare annual wellness visit, subsequent [place], General Preventive Procedures CONSULT/REFERRAL MEDICARE ANNUAL WELLNESS VISIT MD Abdirashid [address] Scott [address] [place] [address] Reason for Visit Reason Comments Hospital F/U 04/30/2019 Encounter Details Date Type Department Care Team Description 05/10/2019 Office Visit [facility] Abdirashid Dennis, Urinary retention ( Primary Dx); Pediatric and Adult Urinary tract infection associated with catheterization of urinary tract, unspecified indwelling urinary catheter type, initial encounter; Primary Care- [address] [place] [address] Flank pain; Cody Rodriguez Medicare annual wellness visit, subsequent; [address] [facility] , [place] [address]; [address] [place], [place] Osteoarthritis of both knees, unspecified osteoarthritis type; [place] [address] Neuropathy [phone] Allergies Active Allergy Reactions Severity [...] Essential hypertension 05/27/2006 Overview: ICD10 Diagnosis 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 [address] [place] [address]. All rights reserved. This information is not [...] CAUTI ( see above). Date Last Reviewed: 09/21/201619992122-9937 [employer]. [address] [place] [address]. All rights reserved. 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 Obesity Other and unspecified hyperlipidemia Other schizophrenia 04/20/2017 Prediabetes Thyroid disease Tobacco abuse 09/27/2015 UTI (lower urinary tract infection) Past Surgical History: Procedure Laterality Date PARTIAL THYROIDECTOMY Right 12/31/2015 Surgeon: Irais Samaniego; Location: [facility] TUBAL LIGATION Social History Socioeconomic History Marital [...] file Gets together: Not on file Attends islam service: Not on file Active member of [...] Office Visit Family Medicine Abdirashid Dennis MD [address] [place] [address] Dr Scott [address] [place] [address] [phone] Name Type Priority Associated Diagnoses Order Schedule [...] LAB Routine Urinary tract infection Ordered: 2018 (78950) associated with catheterization of urinary tract, unspecified [...] ID Effective Phone Address Type Group Dates [facility] [id number] 2017-Prese Medicare Adv HEALTHCARE - HEALTHCARE DUAL nt HMO MANAGED COMPLETE HMO MEDICARE [facility] xxxxxxxxx 2018-Prese Medicaid HEALTHCARE COMM PLUS nt PLAN - MANAGED MEDICAID documented as of this encounter Advance Directives Name Relationship Healthcare Agent Communication Relationship Xavier Martinez Child Primary healthcare agent [phone] Mindy (Mobile) Jh Claros Child Primary healthcare agent
--- OUTSIDE RECORDS SUMMARY | 2019-05-21 20:49 | XMS REPORT | Summary of Care ---
:1945 Author Organization [facility] [employer] Address [address] [place] [address] Care Team Providers Name Role Phone 1, Adc Lab Unavailable Unavailable Yoel Hernádnez MD Unavailable Ildefonso Amanda MD Primary Care Provider Reason for Referral (Routine) Status Reason Specialty Diagnoses / Referred By Referred To Procedures Contact Contact New Request Location Urology Diagnoses Urinary retention [place], Preference Procedures CONSULT/REFERRAL UROLOGY MD Abdirashid [address] [place] [address] Dr [address] [place] [address] (Routine) Status Reason Specialty Diagnoses / Referred By Referred To Procedures Contact Contact Authorized Public Health & Diagnoses Medicare annual wellness visit, subsequent [place], General Preventive Procedures CONSULT/REFERRAL MEDICARE ANNUAL WELLNESS VISIT MD Abdirashid [address] Scott [address] [place] [address] Reason for Visit Reason Comments Hospital F/U 04/30/2019 Encounter Details Date Type Department Care Team Description 05/10/2019 Office Visit [facility] Abdirashid Dennis, Urinary retention ( Primary Dx); Pediatric and Adult Urinary tract infection associated with catheterization of urinary tract, unspecified indwelling urinary catheter type, initial encounter; Primary Care- [address] [place] [address] Flank pain; Cody Rodriguez Medicare annual wellness visit, subsequent; [address] [facility] , [place] [address]; [address] [place], [place] Osteoarthritis of both knees, unspecified osteoarthritis type; [place] [address] Neuropathy [phone] Allergies Active Allergy Reactions Severity [...] Essential hypertension 05/27/2006 Overview: ICD10 Diagnosis 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 [address] [place] [address]. All rights reserved. This information is not [...] CAUTI ( see above). Date Last Reviewed: 09/21/201619995635-5704 [employer]. [address] [place] [address]. All rights reserved. 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 Obesity Other and unspecified hyperlipidemia Other schizophrenia 04/20/2017 Prediabetes Thyroid disease Tobacco abuse 09/27/2015 UTI (lower urinary tract infection) Past Surgical History: Procedure Laterality Date PARTIAL THYROIDECTOMY Right 12/31/2015 Surgeon: Irais Samaniego; Location: [facility] TUBAL LIGATION Social History Socioeconomic History Marital [...] file Gets together: Not on file Attends yarsanism service: Not on file Active member of [...] Office Visit Family Medicine Abdirashid Dennis MD [address] [place] [address] Dr [address] [place] [address] [phone] Name Type Priority Associated Diagnoses Order Schedule [...] LAB Routine Urinary tract infection Ordered: 2018 (51811) associated with catheterization of urinary tract, unspecified [...] ID Effective Phone Address Type Group Dates [facility] [id number] 2017-Prese Medicare Adv HEALTHCARE - HEALTHCARE DUAL nt HMO MANAGED COMPLETE HMO MEDICARE [facility] xxxxxxxxx 2018-Prese Medicaid HEALTHCARE COMM PLUS nt PLAN - MANAGED MEDICAID documented as of this encounter Advance Directives Name Relationship Healthcare Agent Communication Relationship Xavier Martinez Child Primary healthcare agent [phone] Mindy (Mobile) Jh Claros Child Primary healthcare agent
--- OUTSIDE RECORDS SUMMARY | 2019-05-21 20:50 | XMS REPORT | Summary of Care ---
:1945 Author Organization [facility] Address [address] [place] [address] Care Team Providers Name Role Phone 1, Adc Lab Unavailable Unavailable Yoel Hernández MD Unavailable Ildefonso Amanda MD Primary Care Provider Reason for Visit Reason Comments Error Encounter Details Date Type Department Care Team Description 05/11/2019 Telephone [facility] Pediatric and Abdirashid Dennis MD Error Adult Primary Care- [address] [place] [address] Dr Ross [place] [address] [facility] , [place] [address] [address] [place] [address] [phone] Allergies Active Allergy Reactions Severity Noted Date Comments Codeine Anxiety High 05/27/2006 Iodine Swelling 04/10/2017 "makes me sore" Morphine Anxiety 04/13/2016 documented as of this encounter (statuses as of 05/18/2019) Medications Medication Sig Dispensed Refills Start Date [...] unspecified indwelling urinary catheter type, initial encounter documented as of this encounter (statuses as of 05/18/2019) Active Problems Problem Noted Date Urinary retention [...] Essential hypertension 05/27/2006 Overview: ICD10 Diagnosis 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 as of this encounter (statuses as of 05/18/2019) Resolved Problems Problem Noted Date Resolved Date Acute renal insufficiency 04/10/2017 04/20/2017 Preop examination 09/27/2015 04/20/2017 UTI (lower urinary tract infection) 06/15/2015 04/20/2017 Essential hypertension 05/11/2015 04/20/2017 Acute pyelonephritis 05/11/2015 04/20/2017 Paranoid schizophrenia, chronic condition with acute 05/27/2006 04/20/2017 exacerbation OD Corneal Irritation 05/27/2006 04/20/2017 documented as of this encounter (statuses as of 05/18/2019) Immunizations Name Administration Dates Next Due Influenza [...] Office Visit Family Medicine Abdirashid Dennis MD [address] [place] [address] [address] [place], [place] [address] Health Maintenance Due Date Last Done Comments [...] ID Effective Phone Address Type Group Dates [facility] [id number] 2017-Pres Medicare HEALTHCARE - HEALTHCARE ent Adv HMO MANAGED DUAL COMPLETE MEDICARE HMO TMHP MEDICAID OF xxxxxxxxx 2018-Pres [phone] [place] ent [id number] [place] [address] [facility] STAR xxxxxxxxx 2018-Pres Medicaid HEALTHCARE PLUS ent COMM PLAN - MANAGED MEDICAID documented as of this encounter Advance Directives Name Relationship Healthcare Agent Communication Relationship Xavier Martinez Child Primary healthcare agent [phone] Mindy (Mobile) Jh Claros Child Primary healthcare agent
[2019-05-21 21:46] LABS: Absolute Lymphocytes (CBC) 1.8 K/uL (0.7-4.9); Basophils % 0.8 % (0-1.3); Hematocrit 38.1 % (36.0-45.0); Lymphocytes % 27.6 % (15.3-44.8); MPV 9.5 fL (7.6-11.3); RBC Red Blood Cell Count 4.51 M/uL (3.86-4.86)
[2019-05-21 22:00] LABS: Albumin 3.7 g/dL (3.4-5.0); Bilirubin Total 0.4 mg/dL (0.2-1.0); Protein, Total 7.1 g/dL (6.4-8.2)
[2019-05-21 22:02] LABS: Potassium 2.7 mmol/L (3.5-5.1)
[2019-05-21] MEDS ORDERED: NA CHLORIDE 0.9% 0 ML ONE (23:04)
[2019-05-21] MEDS ORDERED: KCL 20 MEQ/100 mL IVPB 0 MEQ/0 ML BAG IV ONE (23:04)
[2019-05-21 23:09] LABS: Urine Culture Reflex Order NOT NEEDED
[2019-05-21 23:20] LABS: Urine Bacteria <20 /HPF (<20); Urine RBC <5 /HPF (NONE SEEN)
[2019-05-21 23:21] LABS: Urine Blood TRACE (NEG); Urine Glucose NEGATIVE (NEG); Urine Protein 1+ (NEG); Urine Specific Gravity 1.015 (1.005-1.030); Urine pH 7.5 (5.0-7.0)
[2019-05-21] MEDS ORDERED: POTASSIUM 25 MEQ EFFERV TAB ONE (23:35)
--- NOTE | 2019-05-21 23:44 | ER ---
Nurse's Notes [facility] Name: Hosea Guillen Age: 73 yrs Sex: Female : 1945 Arrival Date: 05/21/2019 Time: 20:50 Bed 25 Private MD: Diagnosis: Hypokalemia;Urinary tract infection, site not specified Presentation: 05/21 20:53 Presenting complaint: Patient states: i went to my doctor on the for UTI and they la1 put me on cipro. Im almost done with it but still having symptoms. Transition of care: patient was not received from another setting of care. Onset of symptoms was May 21, 2019. Risk Assessment: Do you want to hurt yourself or someone else? Patient reports no desire to harm self or others. Initial Sepsis Screen: Does the patient meet any 2 criteria? No. Patient's initial sepsis screen is negative. Does the patient have a suspected source of infection? No. Patient's initial sepsis screen is negative. Care prior to arrival: None. 20:53 Method Of Arrival: Ambulatory la1 20:53 Acuity: ANNE 3 la1 Triage Assessment: 21:14 General: Appears in no apparent distress. comfortable, obese, well nourished, Behavior fc is calm, cooperative, appropriate for age. Pain: Complains of pain in suprapubic area, right lower quadrant and left lower quadrant Quality of pain is described as aching, pressure, Is continuous. EENT: No deficits noted. Neuro: Level of Consciousness is awake, alert, obeys commands, Oriented to person, place, time, situation, Appropriate for age. Cardiovascular: No deficits noted. Respiratory: Airway is patent Respiratory effort is even, unlabored, Respiratory pattern is regular, symmetrical, Breath sounds are clear bilaterally. GI: Abdomen is round obese, Bowel sounds present X 4 quads. Abd is soft X 4 quads Abdomen is tender to palpation in suprapubic area, right lower quadrant and left lower quadrant. : Reports inability to void, since 1 day ago pain in bilateral in suprapubic area lower quadrant(s). Derm: Skin is pink, warm \T\ dry. Musculoskeletal: Circulation, motion, and sensation intact. Capillary refill < 3 seconds, Range of motion: intact in all extremities. Historical: - Allergies: 20:54 Codeine; la1 20:54 Morphine; la1 22:06 Iodine; fc - Home Meds: 22:21 Haldol Oral 5 mg three times a day [Active]; triamterene-hydrochlorothiazid 75-50 mg fc oral tab 1 tab once daily [Active]; gabapentin 300 mg oral cap 1 cap 3 times per day [Active]; - PMHx: 20:54 Hypertension; osteoarthritis; UTI; la1 - Immunization history:: Adult Immunizations up to date. - Social history:: Smoking status: Patient uses tobacco products, smokes one-half pack cigarettes per day. - Ebola Screening: : No symptoms or risks identified at this time. Screenin:16 Abuse screen: Denies threats or abuse. Nutritional screening: No deficits noted. fc Tuberculosis screening: No symptoms or risk factors identified. Fall Risk Fall in past 12 months (25 points). Secondary diagnosis (15 points) impaired mobility, No IV (0 pts). Ambulatory Aid- Crutches/Cane/Walker (15 pts). Gait- Weak (10 pts.). Mental Status- Overestimates/Forgets Limitations (15 pts.). Total Cardenas Fall Scale indicates High Risk Score (45 or more points). Fall prevention measures have been instituted. Side Rails Up X 2 Placed Close to Nursing Station Frequent Obs/Assessments Occuring As available patient and family educated on Fall Prevention Program and Strategies. Assessment: 21:16 Reassessment: No changes from previously documented assessment. Patient and/or family fc updated on plan of care and expected duration. Pain level reassessed. Patient is alert, oriented x 3, equal unlabored respirations, skin warm/dry/pink. see triage assessment. 22:15 Reassessment: No changes from previously documented assessment. Patient and/or family fc updated on plan of care and expected duration. Pain level reassessed. Patient is alert, oriented x 3, equal unlabored respirations, skin warm/dry/pink. PT's aerl continues to drain small amt of yellow urine. PT states that she feels better except for her arthritis but that hurts all the time. Denies any nausea, vomiting, shortness of breath or chest pain. 23:08 Reassessment: Upon going in with Wilfred CURRAN to discuss labs with pt and needed fc medications. Pt refused to take any fluids or potassium in her IV. Requested pills instead. 23:39 Reassessment: No changes from previously documented assessment. Patient and/or family fc updated on plan of care and expected duration. Pain level reassessed. Pt states that she is ready to go home and she is feeling better. Vital Signs: 20:54 BP 125 / 74; Pulse 115; Resp 16; Temp 97.1; Pulse Ox 100% on R/A; Weight 54.88 kg; la1 Height 5 ft. 7 in. (170.18 cm); 22:10 BP 127 / 71; Pulse 72; Resp 16; Temp 98.0(O); Pulse Ox 100% ; lt1 23:09 BP 119 / 74; Pulse 80; Resp 20; Pulse Ox 100% on R/A; fc 23:40 BP 122 / 76; Pulse 80; Resp 20; Temp 97.7(O); Pulse Ox 100% on R/A; Pain 0/10; fc 20:54 Body Mass Index 18.95 (54.88 kg, 170.18 cm) la1 ED Course: 20:50 Patient arrived in ED. mr 20:54 Triage completed. la1 20:55 Arm band placed on left wrist. la1 20:57 Alessandro King PA is PHCP. jmm 20:58 Cali Atkinson MD is Attending Physician. jmm 21:16 Patient has correct armband on for positive identification. Placed in gown. Bed in low fc position. Call light in reach. Side rails up X 1. 21:32 Missed attempt(s): 22 gauge in left antecubital area. lt1 21:32 Inserted saline lock: 22 gauge in right antecubital area, using aseptic technique. lt1 21:33 Initial lab(s) drawn, by md, sent to lab. lt1 21:47 PHCP role handed off by Alessandro King PA pm1 21:47 Wilfred Raphael NP is PHCP. pm1 22:02 Notified Nurse Practitioner and/or Physician Botany Technician of a critical lab result(s), fc potassium of 2.7. 22:10 Earl cath inserted, using sterile technique, 18 Fr., by me, balloon inflated, urine lt1 specimen collected. returned cloudy urine. Patient tolerated well. 23:40 Earl cath removed intact, balloon deflated. fc 23:44 No provider procedures requiring assistance completed. IV discontinued, intact, fc bleeding controlled, No redness/swelling at site. Pressure dressing applied. Administered Medications: 23:08 Not Given (Patient Refused): Potassium Chloride 20 mEq IV at calculated rate once; fc administer over 2 hours 23:08 Not Given (Patient Refused): NS 0.9% 1000 ml IV at 1000 ml once 23:38 Drug: Klor-Con Effervescent Tablet 50 mEq Route: PO; 23:51 Follow up: Response: No adverse reaction; No change in condition fc 23:51 Not Given (Patient Refused): Rocephin 1 grams IV at calculated rate once; Given slow IV fc push per pharmacy instructions Outcome: 23:40 Discharge ordered by MD. pm1 23:45 Discharged to home ambulatory. 23:45 Condition: good 23:45 Discharge instructions given to patient, Instructed on discharge instructions, follow up and referral plans. no drinking with medication, no driving heavy equipment, medication usage, Demonstrated understanding of instructions, follow-up care, medications, Prescriptions given X 2. 23:51 Patient left the ED. Signatures: Alessandro King PA PA jmm Rivera, Mary mr Chretien, Felicia RN RN Arnaldo Pham RN RN la1 Wilfred Raphael NP HEAD ORTHOPEDIC TEAM PHYSICIAN pm1 Christina Flowers
--- NOTE | 2019-05-21 23:45 | EDPHYS ---
Physician Documentation [facility] Name: Hosea Guillen Age: 73 yrs Sex: Female : 1945 Arrival Date: 05/21/2019 Time: 20:50 Bed 25 Private MD: ED Physician Cali Atkinson HPI: 05/21 20:58 This 73 yrs old Black Female presents to ER via Ambulatory with complaints of Urinary jmm Problem. 20:58 The patient presents with urinary symptoms. Onset: The symptoms/episode began/occurred jmm 11 day(s) ago. Modifying factors: The symptoms are alleviated by nothing, the symptoms are aggravated by nothing. Associated signs and symptoms: Pertinent negatives: fever, vomiting. This is a 73 year old female with a history of htn that presents to the ED with complaints of difficulty with urination. Patient states she has been on cipro with no relief. Denies vomiting, denies abdominal pain. . Historical: - Allergies: 20:54 Codeine; la1 20:54 Morphine; la1 22:06 Iodine; fc - Home Meds: 22:21 Haldol Oral 5 mg three times a day [Active]; triamterene-hydrochlorothiazid 75-50 mg fc oral tab 1 tab once daily [Active]; gabapentin 300 mg oral cap 1 cap 3 times per day [Active]; - PMHx: 20:54 Hypertension; osteoarthritis; UTI; la1 - Immunization history:: Adult Immunizations up to date. - Social history:: Smoking status: Patient uses tobacco products, smokes one-half pack cigarettes per day. - Ebola Screening: : No symptoms or risks identified at this time. ROS: 20:58 Constitutional: Negative for fever, chills, and weight loss, Cardiovascular: Negative jmm for chest pain, palpitations, and edema, Respiratory: Negative for shortness of breath, cough, wheezing, and pleuritic chest pain. 20:58 : Positive for burning with urination, difficulty urinating. 20:58 All other systems are negative. Exam: 20:58 Constitutional: This is a well developed, well nourished patient who is awake, alert, jmm and in no acute distress. Head/Face: atraumatic. Eyes: EOMI, no conjunctival erythema appreciated ENT: Moist Mucus Membranes Neck: Trachea midline, Supple Chest/axilla: Normal chest wall appearance and motion. Cardiovascular: Regular rate and rhythm. No edema appreciated Respiratory: Normal respirations, no respiratory distress appreciated 20:58 Back: Normal ROM Skin: General appearance color normal MS/ Extremity: Moves all extremities, no obvious deformities appreciated, no edema noted to the lower extremities Neuro: Awake and alert, normal gait Psych: Behavior is normal, Mood is normal, Patient is cooperative and pleasant 20:58 Abdomen/GI: Inspection: abdomen appears normal, Bowel sounds: normal, Palpation: abdomen is soft and non-tender, in all quadrants. Vital Signs: 20:54 BP 125 / 74; Pulse 115; Resp 16; Temp 97.1; Pulse Ox 100% on R/A; Weight 54.88 kg; la1 Height 5 ft. 7 in. (170.18 cm); 22:10 BP 127 / 71; Pulse 72; Resp 16; Temp 98.0(O); Pulse Ox 100% ; lt1 23:09 BP 119 / 74; Pulse 80; Resp 20; Pulse Ox 100% on R/A; fc 23:40 BP 122 / 76; Pulse 80; Resp 20; Temp 97.7(O); Pulse Ox 100% on R/A; Pain 0/10; fc 20:54 Body Mass Index 18.95 (54.88 kg, 170.18 cm) la1 MDM: 20:59 Patient medically screened. [facility] 21:45 Transition of care: After a detail discussion of the patient's case, care is [facility] transferred to Wilfred Raphael NP. 23:28 Data reviewed: vital signs. Data interpreted: Pulse oximetry: on room air is 100 %. pm1 Interpretation: normal. 23:39 Counseling: I had a detailed discussion with the patient and/or guardian regarding: the pm1 historical points, exam findings, and any diagnostic results supporting the discharge/admit diagnosis, lab results, the need for outpatient follow up, to return to the emergency department if symptoms worsen or persist or if there are any questions or concerns that arise at home. 05/21 20:58 Order name: Urine Culture [facility] 05/21 20:59 Order name: Urine Culture [facility] 05/21 21:08 Order name: CBC with Diff; Complete Time: 21:50 [facility] 05/21 21:08 Order name: CMP; Complete Time: 22:54 [facility] 05/21 22:04 Order name: Urine Dipstick--Ancillary (enter results); Complete Time: 23:29 ag4 05/21 23:01 Order name: Urine Microscopic Only; Complete Time: 23:29 pm1 05/21 20:58 Order name: Urine Dipstick-Ancillary (obtain specimen); Complete Time: 21:54 [facility] 05/21 21:08 Order name: Saline Lock; Complete Time: 21:33 [facility] 05/21 21:08 Order name: Cain; Complete Time: 21:54 [facility] Administered Medications: 23:08 Not Given (Patient Refused): Potassium Chloride 20 mEq IV at calculated rate once; fc administer over 2 hours 23:08 Not Given (Patient Refused): NS 0.9% 1000 ml IV at 1000 ml once fc 23:38 Drug: Klor-Con Effervescent Tablet 50 mEq Route: PO; fc 23:51 Follow up: Response: No adverse reaction; No change in condition fc 23:51 Not Given (Patient Refused): Rocephin 1 grams IV at calculated rate once; Given slow IV fc push per pharmacy instructions Disposition: 05/22 00:13 Co-signature as Attending Physician, Cali Atkinson MD. rn Disposition: 05/21/19 23:40 Discharged to Home. Impression: Hypokalemia, Urinary tract infection, site not specified. - Condition is Stable. - Discharge Instructions: Potassium Content of Foods, Urinary Tract Infection, Adult, Hypokalemia. - Prescriptions for Pyridium 200 mg Oral Tablet - take 1 tablet by ORAL route every 8 hours for 3 days; 9 tablet. Macrobid 100 mg Oral Capsule - take 1 capsule by ORAL route every 12 hours for 10 days; 20 capsule. - Medication Reconciliation Form, Thank You Letter, Antibiotic Education, Prescription Opioid Use form. - Follow up: Emergency Department; When: As needed; Reason: Worsening of condition. Follow up: Private Physician; When: 2 - 3 days; Reason: Recheck today's complaints, Continuance of care, Re-evaluation by your physician. - Problem is new. - Symptoms have improved. Signatures: Dispatcher [employer] EDMS Alessandro King PA PA jmm Chretien, Felicia, RN RN fc Nieto, Roman, MD MD rn Attema, Lee, RN RN la1 Wilfred Raphael, ROUTER SETTER ROUTER SETTER pm1 Corrections: (The following items were deleted from the chart) 05/21 23:51 23:40 05/21/2019 23:40 Discharged to Home. Impression: Hypokalemia; Urinary tract fc infection, site not specified. Condition is Stable. Forms are Medication Reconciliation Form, Thank You Letter, Antibiotic Education, Prescription Opioid Use. Follow up: Emergency Department; When: As needed; Reason: Worsening of condition. Follow up: Private Physician; When: 2 - 3 days; Reason: Recheck today's complaints, Continuance of care, Re-evaluation by your physician. Problem is new. Symptoms have improved. pm1
[2019-05-22 00:39] VITALS: O2SAT 100
[2019-05-22 00:43] VITALS: BP 122/76; TEMP 97.7
== END 2019-05-21 23:51 | disposition home or self-care (01) ==
LOC: ER 20:46
DX: N39.0 Urinary tract infection, site not specified (principal); E87.6 Hypokalemia; I10 Essential (primary) hypertension; Z88.6 Allergy status to analgesic agent; Z91.09 Other allergy status, other than to drugs and biological substances
CPT/HCPCS: 36415; 51702; 80053; 81003; 81015; 85025; 87086; 87088; 99284; J7030

== ENCOUNTER 2019-06-29 15:00 | Observation (INO) | payer OTHER ==
[2019-06-29] MEDS ORDERED: NA CHLORIDE 0.9% 1,000 ML ONE (15:38)
[2019-06-29 16:23] LABS: Absolute Lymphocytes (CBC) 2.1 K/uL (0.7-4.9); Basophils % 0.5 % (0-1.3); Hematocrit 38.5 % (36.0-45.0); Lymphocytes % 38.3 % (15.3-44.8); MPV 8.4 fL (7.6-11.3); RBC Red Blood Cell Count 4.72 M/uL (3.86-4.86)
[2019-06-29 16:36] LABS: Bilirubin Direct 0.1 mg/dL (0-0.2); Bilirubin Total 0.4 mg/dL (0.2-1.0); Protein, Total 7.8 g/dL (6.4-8.2)
[2019-06-29 16:37] LABS: Potassium 2.5 mmol/L (3.5-5.1)
[2019-06-29] MEDS ORDERED: NS KCL 20MEQ 1,000 ML IV ONE (16:58)
[2019-06-29] MEDS ORDERED: KCL 20 MEQ/100 mL IVPB 20 MEQ/100 ML BAG IV ONE (16:58)
--- NOTE | 2019-06-29 17:20 | RAD REPORT ---
EXAM DESCRIPTION: CT - Stone Protocol - 06/29/2019 5:09 pm CLINICAL HISTORY: Abdominal pain. Difficulty urinating COMPARISON: 2018 TECHNIQUE: Computed axial tomography of the abdomen pelvis was obtained without oral or IV contrast. Lack of IV and oral contrast limits evaluation of solid organs, bowel, and vessels. Coronal reformat janeen images were obtained and reviewed. All CT scans are performed using dose optimization technique as appropriate and may include automated exposure control or mA/KV adjustment according to patient size. FINDINGS: A renal calculus is not seen. An ureteral calculus is not noted. A bladder calculus is not present. The liver, spleen, pancreas and adrenals appear grossly normal There is no evidence of diverticulitis. The appendix appears normal Spondylosis involves lumbar spine resulting in spinal stenosis Mild gallbladder distention IMPRESSION: Negative for a genitourinary calculus Mild gallbladder distention
[2019-06-29 17:22] LABS: Urine Blood 2+ (NEG); Urine Glucose NEGATIVE (NEG); Urine Protein NEGATIVE (NEG); Urine Specific Gravity 1.015 (1.005-1.030); Urine pH 8.5 (5.0-7.0)
[2019-06-29] MEDS ORDERED: CEFTRIAXONE/SWI 1gm 1 GM/10 ML SYR ONE (17:23)
[2019-06-29 17:27] LABS: Magnesium 1.8 mg/dL (1.8-2.4); NT PRO-BNP 159 pg/mL (<450); Phosphorus 2.7 mg/dL (2.5-4.9); Troponin (Emerg Dept Use Only) < 0.02 ng/mL (0.0-0.045)
[2019-06-29 17:33] LABS: Protime INR 1.04
--- NOTE | 2019-06-29 17:35 | EDPHYS ---
Physician Documentation [facility] Name: Hosea Guillen Age: 73 yrs Sex: Female : 1945 Arrival Date: 06/29/2019 Time: 15:01 Bed 23 Private MD: ED Physician Alejo Cantrell HPI: 06/29 17:10 This 73 yrs old Black Female presents to ER via EMS with complaints of Abdominal Pain. josr 17:10 The patient presents with abdominal pain in the lower abdomen. Onset: The josr symptoms/episode began/occurred 2 day(s) ago. The patient presents with urinary symptoms, dysuria, frequency. Onset: The symptoms/episode began/occurred 2 day(s) ago. Modifying factors: The symptoms are alleviated by nothing, the symptoms are aggravated by nothing. Associated signs and symptoms: The patient has no apparent associated signs or symptoms. Severity of symptoms: At their worst the symptoms were mild, moderate, in the emergency department the symptoms are unchanged. Historical: - Allergies: 15:15 Codeine; ca1 15:15 Iodine; ca1 15:15 Morphine; ca1 - Home Meds: 15:15 Haldol Oral [Active]; amlodipine oral [Active]; loratadine oral oral [Active]; ca1 Triamterene-Hydrochlorothiazid Oral [Active]; Nitrofurantoin Macrocrystal Oral [Active]; - PMHx: 15:15 Hypertension; osteoarthritis; UTI; ca1 - PSHx: 15:15 Thyroidectomy; ca1 - Immunization history:: Adult Immunizations not up to date. - Social history:: Smoking status: Patient uses tobacco products, smokes one-half pack cigarettes per day. - Ebola Screening: : Patient negative for fever greater than or equal to 101.5 degrees Fahrenheit, and additional compatible Ebola Virus Disease symptoms Patient denies exposure to infectious person Patient denies travel to an Ebola-affected area in the 21 days before illness onset No symptoms or risks identified at this time. - Family history:: not pertinent. ROS: 17:10 Constitutional: Negative for fever, chills, and weight loss, Eyes: Negative for injury, josr pain, redness, and discharge, ENT: Negative for injury, pain, and discharge, Neck: Negative for injury, pain, and swelling, Cardiovascular: Negative for chest pain, palpitations, and edema, Respiratory: Negative for shortness of breath, cough, wheezing, and pleuritic chest pain, Back: Negative for injury and pain, : Negative for injury, bleeding, discharge, and swelling, MS/Extremity: Negative for injury and deformity, Skin: Negative for injury, rash, and discoloration, Neuro: Negative for headache, weakness, numbness, tingling, and seizure, Psych: Negative for depression, anxiety, suicide ideation, homicidal ideation, and hallucinations, Allergy/Immunology: Negative for hives, rash, and allergies, Endocrine: Negative for neck swelling, polydipsia, polyuria, polyphagia, and marked weight changes, Hematologic/Lymphatic: Negative for swollen nodes, abnormal bleeding, and unusual bruising. 17:10 Abdomen/GI: Positive for abdominal pain, abdominal cramps, of the right lower quadrant and left lower quadrant. Exam: 17:10 Constitutional: This is a well developed, well nourished patient who is awake, alert, josr and in no acute distress. Head/Face: Normocephalic, atraumatic. Eyes: Pupils equal round and reactive to light, extra-ocular motions intact. Lids and lashes normal. Conjunctiva and sclera are non-icteric and not injected. Cornea within normal limits. Periorbital areas with no swelling, redness, or edema. ENT: Nares patent. No nasal discharge, no septal abnormalities noted. Tympanic membranes are normal and external auditory canals are clear. Oropharynx with no redness, swelling, or masses, exudates, or evidence of obstruction, uvula midline. Mucous membranes moist. Neck: Trachea midline, no thyromegaly or masses palpated, and no cervical lymphadenopathy. Supple, full range of motion without nuchal rigidity, or vertebral point tenderness. No Meningismus. Chest/axilla: Normal chest wall appearance and motion. Nontender with no deformity. No lesions are appreciated. Cardiovascular: Regular rate and rhythm with a normal S1 and S2. No gallops, murmurs, or rubs. Normal PMI, no JVD. No pulse deficits. Respiratory: Lungs have equal breath sounds bilaterally, clear to auscultation and percussion. No rales, rhonchi or wheezes noted. No increased work of breathing, no retractions or nasal flaring. Back: No spinal tenderness. No costovertebral tenderness. Full range of motion. Female : Normal external genitalia. Skin: Warm, dry with normal turgor. Normal color with no rashes, no lesions, and no evidence of cellulitis. MS/ Extremity: Pulses equal, no cyanosis. Neurovascular intact. Full, normal range of motion. Neuro: Awake and alert, GCS 15, oriented to person, place, time, and situation. Cranial nerves II-XII grossly intact. Motor strength 5/5 in all extremities. Sensory grossly intact. Cerebellar exam normal. Normal gait. Psych: Awake, alert, with orientation to person, place and time. Behavior, mood, and affect are within normal limits. 17:10 Abdomen/GI: Inspection: abdomen appears normal, Bowel sounds: normal, Liver: no appreciated palpable abnormalities, Hernia: not appreciated. Vital Signs: 15:05 BP 162 / 79 LA (auto/lg); Pulse 84; Resp 18 S; Temp 98.6(O); Pulse Ox 100% on R/A; Pain jp3 7/10; 15:10 Weight 63.5 kg (R); Height 5 ft. 4 in. (162.56 cm) (R); Pain 7/10; ca1 15:40 BP 160 / 77; Pulse 72; Resp 16 S; Pulse Ox 100% on R/A; ca1 16:30 BP 192 / 76; Pulse 78; Resp 17 S; Pulse Ox 100% on R/A; ca1 17:40 BP 188 / 57; Pulse 78; Resp 18 S; Pulse Ox 100% on R/A; ca1 19:19 BP 149 / 62; Pulse 81; Resp 16 S; Temp 98.5(O); Pulse Ox 100% on R/A; ca1 15:10 Body Mass Index 24.03 (63.50 kg, 162.56 cm) ca1 MDM: 15:28 Patient medically screened. [facility] 17:10 Data reviewed: vital signs, nurses notes, lab test result(s), EKG, radiologic studies, [facility] CT scan, plain films. 06/29 15:29 Order name: Basic Metabolic Panel; Complete Time: 17:32 josr 06/29 15:29 Order name: CBC with Diff; Complete Time: 16:37 [facility] 06/29 15:29 Order name: Creatinine for Radiology; Complete Time: 16:37 [facility] 06/29 15:29 Order name: Hepatic Function; Complete Time: 17:32 [facility] 06/29 15:29 Order name: Lipase; Complete Time: 17:32 [facility] 06/29 15:29 Order name: Urine Culture 06/29 16:39 Order name: Magnesium; Complete Time: 17:32 [facility] 06/29 16:39 Order name: NT PRO-BNP; Complete Time: 17:32 [facility] 06/29 16:39 Order name: PT-INR; Complete Time: 18:30 [facility] 06/29 16:39 Order name: Troponin (emerg Dept Use Only); Complete Time: 17:32 [facility] 06/29 16:39 Order name: XRAY Chest (1 view) 06/29 16:39 Order name: Phosphorus; Complete Time: 17:32 [facility] 06/29 16:49 Order name: Urine Dipstick--Ancillary (enter results); Complete Time: 17:32 gm 06/29 15:29 Order name: IV Saline Lock; Complete Time: 16:08 [facility] 06/29 15:29 Order name: Labs collected and sent; Complete Time: 16:08 [facility] 06/29 15:29 Order name: Urine Dipstick-Ancillary (obtain specimen); Complete Time: 15:38 [facility] 06/29 16:39 Order name: EKG; Complete Time: 16:40 [facility] 06/29 16:39 Order name: Cardiac monitoring; Complete Time: 16:42 [facility] 06/29 16:39 Order name: EKG - Nurse/Tech; Complete Time: 17:02 [facility] 06/29 16:39 Order name: O2 Per Protocol; Complete Time: 16:42 [facility] 06/29 16:39 Order name: O2 Sat Monitoring; Complete Time: 16:42 [facility] 06/29 16:59 Order name: CT Stone Protocol; Complete Time: 17:32 [facility] 06/29 17:49 Order name: Diet Regular; Complete Time: 17:50 gm Administered Medications: Discontinued: NS 0.9% 1000 ml IV at 125 ml/hr continuous 16:13 Drug: NS 0.9% 1000 ml Route: IV; Rate: 125 ml/hr; Site: right antecubital; ca1 16:40 Follow up: IV Status: Order to discontinue infusion ca1 17:25 Drug: Rocephin 1 grams Route: IV; Rate: per protocol; Site: right antecubital; ca1 18:08 Follow up: Response: No adverse reaction; IV Status: Completed infusion ca1 17:48 Drug: Potassium Chloride 20 mEq Route: IV; Rate: per protocol; Site: right antecubital; ca1 19:21 Follow up: Response: No adverse reaction; IV Status: Infusion continued upon admission ca1 17:48 Drug: NS 0.9% with KCl 20 mEq/L 1000 ml Route: IV; Rate: 125 ml/hr; Site: right ca1 antecubital; 18:08 Follow up: IV Status: Infusion continued upon admission ca1 Disposition: 06/29/19 17:35 Hospitalization ordered by Elmo Zuleta for Inpatient Admission. Preliminary diagnosis are Urinary tract infection, site not specified, Abdominal tenderness, Hypo-osmolality and hyponatremia, Hypokalemia. - Bed requested for Telemetry/MedSurg (Inpatient). - Status is Inpatient Admission. ca1 - Condition is Fair. - Problem is new. - Symptoms have improved. UTI on Admission? Yes Signatures: Dispatcher [employer] EDAZ Alejo Cantrell MD MD cha Moya, Gabriella Kristin Maldonado RN RN ca1 Corrections: (The following items were deleted from the chart) 17:07 17:00 Urine Culture+[id number].LAB.BRZ ordered. [facility] 18:38 17:35 Hospitalization Ordered by Elmo Zuleta MD for Inpatient Admission. Preliminary diagnosis is Urinary tract infection, site not specified; Abdominal tenderness; Hypo-osmolality and hyponatremia; Hypokalemia. Bed requested for Telemetry/MedSurg (Inpatient). Status is Inpatient Admission. Condition is Fair. Problem is new. Symptoms have improved. UTI on Admission? Yes. [facility] 20:19 18:38 06/29/2019 17:35 Hospitalization Ordered by Elmo Zuleta MD for Inpatient ca1 Admission. Preliminary diagnosis is Urinary tract infection, site not specified; Abdominal tenderness; Hypo-osmolality and hyponatremia; Hypokalemia. Bed requested for Telemetry/MedSurg (Inpatient). Status is Inpatient Admission. Condition is Fair. Problem is new. Symptoms have improved. UTI on Admission? Yes.
--- NOTE | 2019-06-29 17:35 | ER ---
Nurse's Notes [facility] Name: Hosea Guillen Age: 73 yrs Sex: Female : 1945 Arrival Date: 06/29/2019 Time: 15:01 Bed 23 Private MD: Diagnosis: Urinary tract infection, site not specified;Abdominal tenderness;Hypo-osmolality and hyponatremia;Hypokalemia Presentation: 06/29 15:07 Presenting complaint: EMS states: "pt c/o lower abdominal pain and difficulty ca1 urinating. Pt called us yesterday for the same reason, we brought her to [facility]. She said she was discharged without meds and prescription given. Transition of care: patient was not received from another setting of care. Onset of symptoms was June 28, 2019. Risk Assessment: Do you want to hurt yourself or someone else? Patient reports no desire to harm self or others. Initial Sepsis Screen: Does the patient meet any 2 criteria? No. Patient's initial sepsis screen is negative. Does the patient have a suspected source of infection? No. Patient's initial sepsis screen is negative. Care prior to arrival: None. 15:07 Method Of Arrival: EMS: [facility] ca1 15:07 Acuity: ANNE 3 ca1 Historical: - Allergies: 15:15 Codeine; ca1 15:15 Iodine; ca1 15:15 Morphine; ca1 - Home Meds: 15:15 Haldol Oral [Active]; amlodipine oral [Active]; loratadine oral oral [Active]; ca1 Triamterene-Hydrochlorothiazid Oral [Active]; Nitrofurantoin Macrocrystal Oral [Active]; - PMHx: 15:15 Hypertension; osteoarthritis; UTI; ca1 - PSHx: 15:15 Thyroidectomy; ca1 - Immunization history:: Adult Immunizations not up to date. - Social history:: Smoking status: Patient uses tobacco products, smokes one-half pack cigarettes per day. - Ebola Screening: : Patient negative for fever greater than or equal to 101.5 degrees Fahrenheit, and additional compatible Ebola Virus Disease symptoms Patient denies exposure to infectious person Patient denies travel to an Ebola-affected area in the 21 days before illness onset No symptoms or risks identified at this time. - Family history:: not pertinent. Screenin:15 Abuse screen: Denies threats or abuse. Denies injuries from another. Nutritional ca1 screening: No deficits noted. Tuberculosis screening: No symptoms or risk factors identified. Fall Risk None identified. Assessment: 15:15 General: Appears in no apparent distress. comfortable, Behavior is calm, cooperative, ca1 appropriate for age. Pain: Complains of pain in right lower quadrant Pain currently is 7 out of 10 on a pain scale. Pain began 2 hours ago. Neuro: Level of Consciousness is awake, alert, obeys commands, Oriented to person, place, time, situation, Appropriate for age. Cardiovascular: Heart tones S1 S2 present Capillary refill < 3 seconds Patient's skin is warm and dry. Respiratory: Airway is patent Respiratory effort is even, unlabored, Respiratory pattern is regular, symmetrical, Breath sounds are clear bilaterally. GI: Abdomen is round non-distended, Bowel sounds present X 4 quads. Abd is soft X 4 quads Abdomen is tender to palpation in right lower quadrant Patient currently denies nausea. : Reports inability to void, since yesterday. EENT: No deficits noted. No signs and/or symptoms were reported regarding the EENT system. Derm: Skin is intact, is healthy with good turgor, Skin is pink, warm \\T\\ dry. Musculoskeletal: Circulation, motion, and sensation intact. Capillary refill < 3 seconds, Range of motion: intact in all extremities. 15:37 Reassessment: Bladder scanned: 91mL. ca1 15:40 Reassessment: Attempted to urinate. Reports unable to void. ca1 16:15 Reassessment: Patient appears in no apparent distress at this time. Patient and/or ca1 family updated on plan of care and expected duration. Pain level reassessed. Patient is alert, oriented x 3, equal unlabored respirations, skin warm/dry/pink. 17:00 Reassessment: Pt refused KCL drip. Explained K result to pt, and importance of K ca1 replacement. Pt still refused. Pt states, "i don't want IVs, just give me the pills". Notified provider. 17:27 Reassessment: Patient appears in no apparent distress at this time. Patient is alert, ca1 oriented x 3, equal unlabored respirations, skin warm/dry/pink. 18:06 Reassessment: FLACA Hayden talked to pt re IV Potassium. Pt agreed to infusion. Notified ca1 provider. Pt requested food and juice. Notified provider. [place] and juice given to pt, consumed and tolerated well. 19:19 Reassessment: Patient appears in no apparent distress at this time. Patient is alert, ca1 oriented x 3, equal unlabored respirations, skin warm/dry/pink. 19:29 Reassessment: Called for report, nurse will call back. ca1 19:55 Reassessment: Patient appears in no apparent distress at this time. Patient is alert, ca1 oriented x 3, equal unlabored respirations, skin warm/dry/pink. Vital Signs: 15:05 BP 162 / 79 LA (auto/lg); Pulse 84; Resp 18 S; Temp 98.6(O); Pulse Ox 100% on R/A; Pain jp3 7/10; 15:10 Weight 63.5 kg (R); Height 5 ft. 4 in. (162.56 cm) (R); Pain 7/10; ca1 15:40 BP 160 / 77; Pulse 72; Resp 16 S; Pulse Ox 100% on R/A; ca1 16:30 BP 192 / 76; Pulse 78; Resp 17 S; Pulse Ox 100% on R/A; ca1 17:40 BP 188 / 57; Pulse 78; Resp 18 S; Pulse Ox 100% on R/A; ca1 19:19 BP 149 / 62; Pulse 81; Resp 16 S; Temp 98.5(O); Pulse Ox 100% on R/A; ca1 15:10 Body Mass Index 24.03 (63.50 kg, 162.56 cm) ca1 ED Course: 15:01 Patient arrived in ED. am2 15:06 Bed in low position. Call light in reach. Side rails up X 1. Warm blanket given. Verbal jp3 reassurance given. 15:07 Pulse ox on. NIBP on. jp3 15:07 Patient maintains SpO2 saturation greater than 95% on room air. jp3 15:12 Triage completed. ca1 15:15 Arm band placed on right wrist. ca1 15:15 No provider procedures requiring assistance completed. ca1 15:28 Alejo Cantrell MD is Attending Physician. josr 15:29 Kristin Maldonado RN is Primary Nurse. ca1 15:45 Missed attempt(s): 22 gauge in right antecubital area. Bleeding controlled, band aid ca1 applied, catheter tip intact. 16:00 Missed attempt(s): 22 gauge in right wrist. Bleeding controlled, band aid applied, ca1 catheter tip intact. 16:10 Initial lab(s) drawn, by ED staff, sent to lab. Inserted saline lock: 24 gauge in right ca1 antecubital area, using aseptic technique. Blood collected. 17:04 EKG done, by audiovisual technician. reviewed by Alejo Cantrell MD. 3 17:10 CT Stone Protocol In Process Unspecified. EDMS 17:10 CT completed. Patient tolerated procedure well. Patient moved to CT. mi 17:12 Patient moved to radiology via wheelchair. 2 17:17 XRAY Chest (1 view) In Process Unspecified. EDMS 17:33 Elmo Zuleta MD is Hospitalizing Provider. josr 19:55 Patient admitted, IV remains in place. ca1 Administered Medications: Discontinued: NS 0.9% 1000 ml IV at 125 ml/hr continuous 16:13 Drug: NS 0.9% 1000 ml Route: IV; Rate: 125 ml/hr; Site: right antecubital; ca1 16:40 Follow up: IV Status: Order to discontinue infusion ca1 17:25 Drug: Rocephin 1 grams Route: IV; Rate: per protocol; Site: right antecubital; ca1 18:08 Follow up: Response: No adverse reaction; IV Status: Completed infusion ca1 17:48 Drug: Potassium Chloride 20 mEq Route: IV; Rate: per protocol; Site: right antecubital; ca1 19:21 Follow up: Response: No adverse reaction; IV Status: Infusion continued upon admission ca1 17:48 Drug: NS 0.9% with KCl 20 mEq/L 1000 ml Route: IV; Rate: 125 ml/hr; Site: right ca1 antecubital; 18:08 Follow up: IV Status: Infusion continued upon admission ca1 Outcome: 17:35 Decision to Hospitalize by Provider. josr 19:55 Discharged to home via wheelchair. ca1 19:55 Condition: stable 19:55 Instructed on the need for admit. 20:19 Patient left the ED. ca1 Signatures: Dispatcher [employer] EDWI Alejo Cantrell MD MD cha Jordan, Betzy Alarcon Victoria 2 Ivone Penaloza 3 Devang Eid 3 Kristin Maldonado RN RN ca1 Corrections: (The following items were deleted from the chart) 15:29 15:15 : Reports burning with urination, urgency, urinary frequency, ca1 ca1 17:12 17:10 Patient moved back from [place]
--- NOTE | 2019-06-29 18:24 | EKG ---
Test Date: 2019-06-29 Test Time: 16:53:49 Business Services Director: RON MEASUREMENT RESULTS: Intervals: Rate: 77 AR: 170 QRSD: 90 QT: 440 QTc: 497 [place]: P: 66 AR: 170 QRS: 72 T: 59 INTERPRETIVE STATEMENTS: Normal sinus rhythm Prolonged QT Abnormal ECG Compared to ECG 04/27/2019 07:53:12 Prolonged QT interval now present Electronically Signed On 06-29-19 18:23:45 CDT by Jamir Barrett
--- NOTE | 2019-06-29 18:37 | P.HP ---
Certification for Inpatient Patient admitted to: Inpatient Practitioner: I am a practitioner with admitting privileges, knowledge of patient current condition, hospital course, and medical plan of care. Services: Services provided to patient in accordance with Admission requirements found in Title 42 Section 412.3 of the Code of Federal Regulations Patient History Date of Service: 06/29/19 Primary Care Provider: Dr. Amanda at [place] Reason for admission: Lower abdominal pain History of Present Illness: This is a 73-year-old female with past medical history of CKD stage 3, anxiety, hypertension and osteoarthritis who presented to the emergency room with lower abdominal pain. Per patient, she has had lower abdominal pain for the past 1 day that has been progressively getting worse. No exacerbation factors. She did try Tylenol, which did not help. She does endorse urinary frequency and urgency. Denies any chest pain, shortness of breath, fevers, chills, nausea or vomiting, other GI complaints. Since it was not improving, she has not had a bladder infection and came to the emergency room. In the ER, blood pressure was 160/79, heart rate of 84, respirations of 18, afebrile at 98.6 and satting 100% on room air. Her labs were remarkable for sodium decreased to 126, potassium decreased to 2.5. Her UA was positive for blood and leuks Esterase. She received Rocephin, potassium and IV fluids in the ER. At the time of my exam, she is alert oriented x3, hemodynamically stable and in no acute distress Allergies hydrochlorothiazide Allergy (Unknown, Verified 02/05/16 02:25) unknown codeine Allergy (Unverified 02/05/16 02:25) Unknown morphine Allergy (Unverified 06/10/16 22:34) Unknown Home medications list reviewed: Yes Home Medications: Haloperidol [Haldol*] 15 mg PO BEDTIME 02/03/16 Amlodipine [Norvasc*] 5 mg PO DAILY #30 tab 02/05/16 Carvedilol [Coreg*] 3.125 mg PO BID #60 tab 02/05/16 Tamsulosin [Flomax*] 0.4 mg PO DAILY #30 cap 02/05/16 - Past Medical/Surgical History Diabetic: No -: Anxiety -: HTN -: Depression -: CKD III - Family History Father Notes: pt doesn't know Mother Notes: pt doesn't know - Social History Alcohol use: No CD- Drugs: Yes Caffeine use: No Review of Systems 10-point ROS is otherwise unremarkable Physical Examination - Physical Exam General: Alert, In no apparent distress, Oriented x3 HEENT: Atraumatic, PERRLA, Mucous membr. moist/pink, EOMI, Sclerae nonicteric Neck: Supple, 2+ carotid pulse no bruit, No LAD, Without JVD or thyroid abnormality Respiratory: Clear to auscultation bilaterally, Normal air movement Cardiovascular: Regular rate/rhythm, Normal S1 S2 Gastrointestinal: Normal bowel sounds, No tenderness Musculoskeletal: No tenderness Integumentary: No rashes Neurological: Normal strength at 5/5 x4 extr, Normal tone, Normal affect, Abnormal speech (At baseline) Lymphatics: No axilla or inguinal lymphadenopathy - Studies Laboratory Data (last 24 hrs) 06/29/19 16:50: PT 12.3, INR 1.04 06/29/19 16:50: Phosphorus 2.7, Magnesium 1.8 06/29/19 16:04: Creatinine 1.24 06/29/19 16:04: WBC 5.6, Hgb 13.2, Hct 38.5, Plt Count 314 06/29/19 16:04: Sodium 126 L, Potassium 2.5 L*, BUN 12, Creatinine 1.27, Glucose 79, Total Bilirubin 0.4, AST 23, ALT 21, Alkaline Phosphatase 96, Lipase 52 L Assessment and Plan - Problems (Diagnosis) (1) UTI (urinary tract infection) Onset Date: 02/04/16 Current Visit: No Status: Acute Plan: Will start IV Rocephin -urine cultures pending -will adjust antibiotics, depending on urine cultures -no evidence of sepsis at this time. Will continue to monitor Qualifiers: Urinary tract infection type: acute cystitis Hematuria presence: with hematuria Qualified Code(s): N30.01 - Acute cystitis with hematuria (2) Hypokalemia Onset Date: 02/04/16 Current Visit: No Status: Acute Plan: Replace per protocol. Continue to monitor (3) Hyponatremia Onset Date: 02/04/16 Current Visit: No Status: Acute Plan: Continue IV fluids -asymptomatic hyponatremia -will continue to monitor (4) Anxiety Onset Date: 02/04/16 Current Visit: No Status: Chronic Plan: We will restart home medications once reconciled (5) CKD (chronic kidney disease), stage III Onset Date: 02/04/16 Current Visit: No Status: Chronic (6) Depression Onset Date: 02/04/16 Current Visit: No Status: Chronic Qualifiers: (7) Hypertension Onset Date: 02/04/16 Current Visit: No Status: Chronic - Plan DVT prophylaxis: Lovenox GI prophylaxis: None Diet: Heart healthy Disposition: Admit to floor with tele, pending symptomatic improvement and cultures. - Advance Directives Does patient have a Living Will: No Does patient have a Durable POA for Healthcare: No Time Spent Managing Pts Care (In Minutes): 55
--- NOTE | 2019-06-29 18:42 | RAD REPORT ---
EXAM DESCRIPTION: Chiara Single View06/29/2019 5:17 pm CLINICAL HISTORY: cough COMPARISON: 2016 FINDINGS: The lungs appear clear of acute infiltrate. The heart is normal size IMPRESSION: No acute abnormalities displayed
[2019-06-29] MEDS ORDERED: ONDANSETRON 4 MG/2 ML VIAL IV PRN (20:22)
[2019-06-29] MEDS ORDERED: INFLUENZA VACCINE (for 3y+) 0.5 ML DOSE IMVAC ONE (22:18)
[2019-06-29] MEDS ORDERED: PNEUMOCOCCAL VACCINE 0.5 ML IMVAC ONE (22:18)
[2019-06-29] MEDS: NA CHLORIDE 0.9% 1,000 ML IV SCH (23:05)
[2019-06-30] MEDS: ACETAMINOPHEN 325 MG TABLET PO PRN ×4 (04:11→22:03)
[2019-06-30 05:19] LABS: Absolute Lymphocytes (CBC) 1.7 K/uL (0.7-4.9); Basophils % 0.9 % (0-1.3); Hematocrit 34.3 % (36.0-45.0); Lymphocytes % 27.7 % (15.3-44.8); MPV 8.3 fL (7.6-11.3); RBC Red Blood Cell Count 4.19 M/uL (3.86-4.86)
[2019-06-30 05:36] LABS: Albumin 3.3 g/dL (3.4-5.0); Bilirubin Total 0.3 mg/dL (0.2-1.0); Magnesium 1.8 mg/dL (1.8-2.4); Protein, Total 6.4 g/dL (6.4-8.2)
[2019-06-30] MEDS ORDERED: MAGNESIUM SULFATE 1 gm IVPB 1 GM/100 ML BAG IV ONE (06:20)
[2019-06-30] MEDS: NA CHLORIDE 0.9% 1,000 ML IV SCH ×3 (06:22→22:08)
[2019-06-30] MEDS: ENOXAPARIN 40 MG/0.4 ML SQ SCH (07:57)
[2019-06-30] MEDS ORDERED: POTASSIUM 25 MEQ EFFERV TAB PO ONE (09:00)
[2019-06-30] MEDS ORDERED: POTASSIUM CL SA 10 MEQ TAB PO ONE (18:00)
--- NOTE | 2019-06-30 18:48 | P.PN ---
Subjective Date of Service: 06/30/19 Primary Care Provider: Dr. Amanda at [place] Chief Complaint: Lower abdominal pain Subjective: No C/O voiced, Improving Patient seen and examined at bedside. No family at bedside. Chart reviewed and case discussed with nursing staff. Review of Systems 10-point ROS is otherwise unremarkable Physical Examination - Vital Signs Temperature: 97 F Blood Pressure: 152/67 Pulse: 77 Respirations: 18 Pulse Ox (%): 98 - Physical Exam General: Alert, In no apparent distress HEENT: Atraumatic, PERRLA, EOMI Neck: Supple, JVD not distended Respiratory: Clear to auscultation bilaterally, Normal air movement Cardiovascular: Regular rate/rhythm, Normal S1 S2 Gastrointestinal: Normal bowel sounds, No tenderness Musculoskeletal: No tenderness Integumentary: No rashes Neurological: Normal speech, Normal tone, Normal affect Lymphatics: No axilla or inguinal lymphadenopathy Assessment And Plan - Current Problems (Diagnosis) (1) UTI (urinary tract infection) Onset Date: 02/04/16 Status: Acute Plan: Will start IV Rocephin -urine cultures pending -will adjust antibiotics, depending on urine cultures -no evidence of sepsis at this time. Will continue to monitor Qualifiers: Urinary tract infection type: acute cystitis Hematuria presence: with hematuria Qualified Code(s): N30.01 - Acute cystitis with hematuria (2) Hypokalemia Onset Date: 02/04/16 Status: Acute Plan: Replace per protocol. Continue to monitor (3) Hyponatremia Onset Date: 02/04/16 Status: Acute Plan: Continue IV fluids -asymptomatic hyponatremia -will continue to monitor (4) Anxiety Onset Date: 02/04/16 Status: Chronic Plan: We will restart home medications once reconciled (5) CKD (chronic kidney disease), stage III Onset Date: 02/04/16 Status: Chronic (6) Depression Onset Date: 02/04/16 Status: Chronic Qualifiers: (7) Hypertension Onset Date: 02/04/16 Status: Chronic - Plan DVT prophylaxis: Lovenox GI prophylaxis: None Diet: Heart healthy Disposition: pending symptomatic improvement and cultures. Anticipate discharge in the next 24
[2019-07-01] MEDS: NA CHLORIDE 0.9% 1,000 ML IV SCH ×2 (02:22→08:02)
[2019-07-01 06:27] LABS: Absolute Lymphocytes (CBC) 2.4 K/uL (0.7-4.9); Basophils % 0.9 % (0-1.3); Hematocrit 32.7 % (36.0-45.0); Lymphocytes % 34.9 % (15.3-44.8); MPV 9.2 fL (7.6-11.3); RBC Red Blood Cell Count 4.01 M/uL (3.86-4.86)
[2019-07-01 07:19] LABS: Bilirubin Total 0.4 mg/dL (0.2-1.0); Magnesium 1.8 mg/dL (1.8-2.4); Potassium 3.2 mmol/L (3.5-5.1); Protein, Total 6.2 g/dL (6.4-8.2)
[2019-07-01] MEDS: ACETAMINOPHEN 325 MG TABLET PO PRN (08:00)
[2019-07-01] MEDS: ENOXAPARIN 40 MG/0.4 ML SQ SCH (08:02)
[2019-07-01 08:26] VITALS: O2SAT 98
[2019-07-01] MEDS ORDERED: POTASSIUM CL SA 10 MEQ TAB PO ONE (09:00)
[2019-07-01 12:42] VITALS: BP 152/67; TEMP 97
--- NOTE | 2019-07-01 12:44 | P.SSS ---
Patient History Date of Service: 07/01/19 Primary Care Provider: Dr. Amanda at [place] Reason for admission: Lower abdominal pain History of Present Illness: This is a 73-year-old female with past medical history of CKD stage 3, anxiety, hypertension and osteoarthritis who presented to the emergency room with lower abdominal pain. Per patient, she has had lower abdominal pain for the past 1 day that has been progressively getting worse. No exacerbation factors. She did try Tylenol, which did not help. She does endorse urinary frequency and urgency. Denies any chest pain, shortness of breath, fevers, chills, nausea or vomiting, other GI complaints. Since it was not improving, she has not had a bladder infection and came to the emergency room. In the ER, blood pressure was 160/79, heart rate of 84, respirations of 18, afebrile at 98.6 and satting 100% on room air. Her labs were remarkable for sodium decreased to 126, potassium decreased to 2.5. Her UA was positive for blood and leuks Esterase. She received Rocephin, potassium and IV fluids in the ER. At the time of my exam, she is alert oriented x3, hemodynamically stable and in no acute distress Allergies codeine Allergy (Verified 06/29/19 21:28) Unknown iodine Allergy (Verified 06/29/19 21:42) unknown morphine Allergy (Verified 06/29/19 21:28) Unknown Home medications list reviewed: Yes Home Medications: Amlodipine [Norvasc*] 1 tab PO DAILY 06/30/19 Atorvastatin Calcium 1 tab PO BEDTIME 06/30/19 Benztropine Mesylate 1 tab PO BID 06/30/19 Gabapentin 1 tab PO TID 06/30/19 Haloperidol [Haldol*] 3 tab PO DAILY 06/30/19 Nitrofuran Macro [Macrobid*] 1 cap PO BID 06/30/19 Risperidone [Risperdal] 1 tab PO DAILY 06/30/19 - Past Medical/Surgical History Has patient received pneumonia vaccine in the past: No Diabetic: No -: Anxiety -: HTN -: Depression -: CKD III - Family History Father Notes: pt doesn't know Mother Notes: pt doesn't know - Social History Smoking Status: Current every day smoker Alcohol use: No CD- Drugs: No Caffeine use: Yes Place of Residence: Home Review of Systems 10-point ROS is otherwise unremarkable Physical Examination - Vital Signs Temperature: 97 F Blood Pressure: 152/67 Pulse: 77 Respirations: 18 Pulse Ox (%): 98 - Physical Exam General: Alert, In no apparent distress HEENT: Atraumatic, PERRLA, Mucous membr. moist/pink, EOMI, Sclerae nonicteric Neck: Supple, 2+ carotid pulse no bruit, No LAD, Without JVD or thyroid abnormality Respiratory: Clear to auscultation bilaterally, Normal air movement Cardiovascular: Regular rate/rhythm, Normal S1 S2 Gastrointestinal: Normal bowel sounds, No tenderness Musculoskeletal: No tenderness Integumentary: No rashes Neurological: Normal gait, Normal speech, Normal strength at 5/5 x4 extr, Normal tone, Normal affect Lymphatics: No axilla or inguinal lymphadenopathy - Studies Microbiology Data (last 24 hrs): 06/29/19 16:40 Clean Catch Urine [place] Count - Final >100,000 CFU/ML. 06/29/19 16:40 Clean Catch Urine - Final MIXED STEFANO. - Diagnosis (Problem(s)) (1) UTI (urinary tract infection) Onset Date: 02/04/16 Status: Acute Qualifiers: Urinary tract infection type: acute cystitis Hematuria presence: with hematuria Qualified Code(s): N30.01 - Acute cystitis with hematuria (2) Hypokalemia Onset Date: 02/04/16 Status: Acute (3) Hyponatremia Onset Date: 02/04/16 Status: Acute (4) Anxiety Onset Date: 02/04/16 Status: Chronic (5) CKD (chronic kidney disease), stage III Onset Date: 02/04/16 Status: Chronic (6) Depression Onset Date: 02/04/16 Status: Chronic Qualifiers: Depression Type: unspecified (7) Hypertension Onset Date: 02/04/16 Status: Chronic Treatment Summary: Patient was admitted with multiple electrolyte abnormalities. She was started on IV fluids, most of them improved and resolved with IV fluids. Her urine cultures remained negative. Antibiotics were discontinued upon discharge. She otherwise remained stable throughout the stay. Her diagnoses was explained to her treatment plan was explained. All questions were answered and she verbalized understanding. She was discharged home in a safe and stable manner. - Disposition Discharge Date: 07/01/19 Disposition: ROUTINE DISCHARGE Condition: GOOD Patient Discharge Instructions: Please follow up with your primary care physician in 2-3 days. Return to the ER for worsening symptoms. Diet: AHA Activity: Ad ese Time Spent Managing Pts Care (In Minutes): 55
== END 2019-07-01 10:47 | disposition home or self-care (01) ==
LOC: ER 15:00 → ERHOLD 17:47 → INTOOBSV 17:47 → 2ND 19:58
PROVIDERS: ADMIT Family Medicine; ATTEND Family Medicine
DX: N30.01 Acute cystitis with hematuria (principal); I12.9 Hypertensive chronic kidney disease with stage 1 through stage 4 chronic kidney disease, or unspecified chronic kidney disease; N18.3 Chronic kidney disease, stage 3 (moderate); E87.6 Hypokalemia; E87.1 Hypo-osmolality and hyponatremia; F41.8 Other specified anxiety disorders; F17.210 Nicotine dependence, cigarettes, uncomplicated
CPT/HCPCS: 96365; 96368; 93005; 87088; 85025 ×3; 87086; 80048; 36415 ×2; 83735 ×3; 84100; 84132; 85610; 80076; 81003; 84484; 83690; 80053 ×2; 83880; 76377; 74176; 71045; 94760 ×4; 99285; J1650 ×2; J3475; J0696; J7030 ×5; G0378 ×4

== ENCOUNTER 2019-09-17 18:25 | Emergency (ER) | payer OTHER ==
--- OUTSIDE RECORDS SUMMARY | 2019-09-17 18:27 | XMS REPORT ---
:1945 [facility] Address [address] [place] [address] Dr. Serrato [address] [place] [id number] Care Team Providers Name Role Phone Unavailable Unavailable Unavailable Problems This patient has no known problems. Allergies, Adverse Reactions, Alerts This patient has no known allergies or adverse reactions. Medications This patient has no known medications.
--- NOTE | 2019-09-17 19:44 | RAD REPORT ---
EXAM DESCRIPTION: CT - Stone Protocol - 09/17/2019 7:19 pm CLINICAL HISTORY: Dysuria, right hip pain, right knee pain, abdominal pain COMPARISON: CT June 29 TECHNIQUE: Axial 5 mm thick images were obtained without oral or IV contrast. The [id number] span s the entirety of the system including uppermost abdomen and lung bases. All CT scans are performed using dose optimization technique as appropriate and may include automated exposure control or mA/KV adjustment according to patient size. FINDINGS: No hydronephrosis is present and no obstructing ureteral calculi. No obstructing nonobstru cting calculi. No suspicious renal masses. Isodense masses and pyelonephritis are not excluded on a s tone protocol CT scan. No urinary bladder suspicious finding. No significant adrenal finding. Uterus and ovaries show no suspicious findings. Imaged portions of the liver, spleen and pancreas show no suspicious findings on non-contrast imaging . No gallbladder or biliary tree abnormality identified. No suspicious bowel findings. No appendicitis. Minimal diverticulosis present. No hernia, mass or bulky lymphadenopathy noted. No free air, free fluid or inflammatory stranding. No acute bone findings seen. Prominent degenerative changes at the L5-S1 disc level. Advanced degene rative change present throughout the facet joints. Dense arterial tree calcifications are present. IMPRESSION: No hydronephrosis, obstructing calculus or acute finding. Isodense masses and pyelonephritis are not excluded on stone protocol technique. No acute GI or DREDGE OPERATOR SUPERVISOR process seen.
[2019-09-17 19:59] LABS: Urine Blood NEGATIVE (NEG); Urine Glucose NEGATIVE (NEG); Urine Protein NEGATIVE (NEG); Urine pH 6.5 (5.0-7.0)
--- NOTE | 2019-09-17 20:11 | RAD REPORT ---
EXAM DESCRIPTION: RAD - Hip Right 2 View - 09/17/2019 7:48 pm CLINICAL HISTORY: Nontraumatic right hip pain COMPARISON: None. FINDINGS: AP and frog-leg views of the right hip were obtained. There is no fracture or dislocation . No acute or destructive bony process seen. No periarticular abnormality. IMPRESSION: Negative right hip examination for acute findings.
--- NOTE | 2019-09-17 20:12 | RAD REPORT ---
EXAM DESCRIPTION: RAD - Knee Right 3 View - 09/17/2019 7:48 pm CLINICAL HISTORY: Nontraumatic knee pain COMPARISON: None. FINDINGS: No fracture, dislocation or periosteal reaction.No measurable joint effusion. Spurring josr nges are present at the quadriceps and patella tendon attachments to the patella. Patella femoral dorothy nt space is narrowed. There is artery significant medial compartment narrowing with sclerotic and spu rring changes present. Spurring is seen along the tibial spine. Dense meniscal calcifications seen in the lateral compartment. Slight lateral subluxation of the tibial plateau relative to femoral condyl es. No foreign body or other soft tissue abnormality. IMPRESSION: Advanced knee degenerative change as detailed. No acute findings seen. Clinical concerns for internal derangement or occult bony injury could be further assessed with MR im aging.
--- NOTE | 2019-09-17 20:45 | ER ---
Nurse's Notes [facility] Name: Hosea Guillen Age: 74 yrs Sex: Female : 1945 Arrival Date: 09/17/2019 Time: 18:36 Bed 14 Private MD: Diagnosis: Dysuria;Pain in right hip;Pain in right knee;Urinary tract infection, site not specified;Osteoarthritis of hip;Osteoarthritis of knee Presentation: 09/17 18:37 Presenting complaint: EMS states: 74 yr. old female, c/o burning with urination, right rb1 hip and right knee pain. Pt. denies blood in urine. Vital signs have been stable. Allergy to Iodine, History of the hypertension and arthritis. Transition of care: patient was not received from another setting of care. Onset of symptoms was September 17, 2019. Risk Assessment: Do you want to hurt yourself or someone else? Patient reports no desire to harm self or others. Care prior to arrival: None. 18:37 Method Of Arrival: EMS: [place] [address] 18:37 Acuity: ANNE 3 rb1 18:41 Initial Sepsis Screen: Does the patient meet any 2 criteria? No. Patient's initial rb1 sepsis screen is negative. 19:15 Initial Sepsis Screen: Does the patient have a suspected source of infection? Yes: wh Dysuria/Frequency/Urgency/UTI. Triage Assessment: 18:41 General: Appears in no apparent distress. comfortable, Behavior is calm, cooperative, rb1 Denies fever. Pain: Complains of pain in right knee and right hip Pain currently is 10 out of 10 on a pain scale. Pain began chronic. Neuro: Level of Consciousness is awake, alert, obeys commands, Oriented to person, place, time, situation. Cardiovascular: Capillary refill < 3 seconds is brisk in bilateral fingers. Respiratory: Airway is patent Respiratory effort is even, unlabored, Respiratory pattern is regular, symmetrical. GI: No signs and/or symptoms were reported involving the gastrointestinal system. : Reports burning with urination, inability to void. Derm: Skin is dry, Skin is normal, Skin temperature is warm. Musculoskeletal: Range of motion: intact in all extremities. Historical: - Allergies: 18:41 Codeine; rb1 18:41 Iodine; rb1 18:41 Morphine; rb1 - Home Meds: 18:41 amlodipine oral [Active]; gabapentin 300 mg Oral cap 1 cap 3 times per day [Active]; rb1 Haldol Oral [Active]; loratadine Oral [Active]; Nitrofurantoin Macrocrystal Oral [Active]; triamterene-hydrochlorothiazid 75-50 mg Oral tab 1 tab once daily [Active]; - PMHx: 18:41 Hypertension; osteoarthritis; UTI; rb1 - PSHx: 18:41 Thyroidectomy; rb1 - Immunization history:: Adult Immunizations up to date. - Social history:: Smoking status: Patient uses tobacco products, smokes one-half pack cigarettes per day. - Ebola Screening: : Patient negative for fever greater than or equal to 101.5 degrees Fahrenheit, and additional compatible Ebola Virus Disease symptoms. - Family history:: not pertinent. Screenin:41 Abuse screen: Denies threats or abuse. Nutritional screening: No deficits noted. rb1 Tuberculosis screening: No symptoms or risk factors identified. Fall Risk None identified. Assessment: 19:15 General: Appears in no apparent distress. Behavior is calm, cooperative, appropriate wh for age. Pain: Complains of pain in suprapubic area and right leg and right knee. Neuro: Level of Consciousness is awake, alert, obeys commands, Oriented to person, place, time, situation, Appropriate for age. Cardiovascular: Heart tones S1 S2. Respiratory: Airway is patent Respiratory effort is even, unlabored, Respiratory pattern is regular, symmetrical, Breath sounds are clear bilaterally. GI: Abdomen is flat, non-distended. : Reports inability to void, pain with urination. EENT: No signs and/or symptoms were reported regarding the EENT system. Derm: Skin is intact, is healthy with good turgor, Skin is pink, warm \T\ dry. normal. Musculoskeletal: Circulation, motion, and sensation intact. 20:03 Reassessment: Patient appears in no apparent distress at this time. No changes from previously documented assessment. Patient and/or family updated on plan of care and expected duration. Pain level reassessed. Patient is alert, oriented x 3, equal unlabored respirations, skin warm/dry/pink. 21:10 Reassessment: Upon discharge pt alert, smiling, equal unlabored resp, skin warm/dry/nc, sr5 steady gait out of ER. Vital Signs: 18:41 BP 124 / 77; Pulse 76; Resp 19; Temp 98.0(O); Pulse Ox 99% on R/A; Weight 72.57 kg (R); rb1 Height 5 ft. 4 in. (162.56 cm) (R); Pain 10/10; 19:45 BP 143 / 55; Pulse 77; Resp 18; Pulse Ox 100% on R/A; wh 21:09 BP 144 / 65; Pulse 94; Resp 20; Temp 98.0; Pulse Ox 98% on R/A; sr5 18:41 Body Mass Index 27.46 (72.57 kg, 162.56 cm) rb1 ED Course: 18:36 Patient arrived in ED. rb1 18:39 Triage completed. rb1 18:39 Alejo Cantrell MD is Attending Physician. josr 18:41 Arm band placed on right wrist. rb1 18:41 Patient has correct armband on for positive identification. Bed in low position. Call rb1 light in reach. Side rails up X2. Pulse ox on. NIBP on. Warm blanket given. 19:00 Jere Alvarado is Primary Nurse. wh 19:15 Arnaldo Brenner FNP-C is PHCP. la1 19:22 CT Stone Protocol In Process Unspecified. EDMS 19:31 CT completed. Pt tolerated procedure poorly. Patient moved to CT via stretcher. Patient eh moved back from CT. 19:49 Knee Right 3 View XRAY In Process Unspecified. EDMS 19:49 Hip Right 2 View XRAY In Process Unspecified. EDMS 20:03 Missed attempt(s): 22 gauge in right antecubital area. Bleeding controlled, band aid wh applied, catheter tip intact. 20:44 Jarocho Santillan MD is Referral Physician. la1 20:45 Missed attempt(s): 22 gauge in left antecubital area. Bleeding controlled, band aid jd3 applied, catheter tip intact. 21:11 No provider procedures requiring assistance completed. Patient did not have IV access during this emergency room visit. Administered Medications: 20:48 Not Given (Physician Discretion): NS 0.9% 500 ml IV at bolus once jd3 20:48 Not Given (Physician Discretion): NS 0.9% 1000 ml IV at 125 ml/hr continuous jd3 20:48 Not Given (Physician Discretion): Rocephin 1 grams IV at per protocol once; Given slow jd3 IV push per pharmacy instructions 20:57 Drug: Cipro 500 mg Route: PO; 21:10 Follow up: Response: No adverse reaction Outcome: 20:44 Discharge ordered by . la1 21:08 Patient left the ED. sr5 : Discharged to home ambulatory, with family. sr5 21: Condition: good 21: Discharge instructions given to patient, Instructed on discharge instructions, follow up and referral plans. medication usage, Demonstrated understanding of instructions, follow-up care, medications, Prescriptions given X 2. Signatures: Dispatcher [employer] EDOK Alejo Cantrell MD MD cha Hagler, Ervin eh Attema, Lee, RETAIL PRODUCT ADVISOR-C RETAIL PRODUCT ADVISOR-Cla1 Wilma Perez, RN RN rb1 Cam Nieves RN RN sr5 Jere Alvarado Jonathon, RN RN jd3
--- NOTE | 2019-09-17 20:46 | EDPHYS ---
Physician Documentation [facility] Name: Hosea Guillen Age: 74 yrs Sex: Female : 1945 Arrival Date: 09/17/2019 Time: 18:36 Bed 14 Private MD: ED Physician Alejo Cantrell HPI: 09/17 19:01 This 74 yrs old Black Female presents to ER via EMS with complaints of Pain With josr Urination, Knee Pain, Hip Pain. 19:01 The patient or guardian reports decreased range of motion, pain. sustained from unknown josr reason. The complaints affect the right knee. Onset: The symptoms/episode began/occurred 1 week(s) ago. Modifying factors: The symptoms are alleviated by remaining still, the symptoms are aggravated by any movement, extension. Associated signs and symptoms: Pertinent positives: dysuria. Severity of symptoms: At their worst the symptoms were mild, in the emergency department the symptoms are unchanged. The patient has experienced similar episodes in the past, multiple times. Historical: - Allergies: 18:41 Codeine; rb1 18:41 Iodine; rb1 18:41 Morphine; rb1 - Home Meds: 18:41 amlodipine oral [Active]; gabapentin 300 mg Oral cap 1 cap 3 times per day [Active]; rb1 Haldol Oral [Active]; loratadine Oral [Active]; Nitrofurantoin Macrocrystal Oral [Active]; triamterene-hydrochlorothiazid 75-50 mg Oral tab 1 tab once daily [Active]; - PMHx: 18:41 Hypertension; osteoarthritis; UTI; rb1 - PSHx: 18:41 Thyroidectomy; rb1 - Immunization history:: Adult Immunizations up to date. - Social history:: Smoking status: Patient uses tobacco products, smokes one-half pack cigarettes per day. - Ebola Screening: : Patient negative for fever greater than or equal to 101.5 degrees Fahrenheit, and additional compatible Ebola Virus Disease symptoms. - Family history:: not pertinent. ROS: 19:01 Constitutional: Negative for fever, chills, and weight loss, Eyes: Negative for injury, josr pain, redness, and discharge, ENT: Negative for injury, pain, and discharge, Neck: Negative for injury, pain, and swelling, Cardiovascular: Negative for chest pain, palpitations, and edema, Respiratory: Negative for shortness of breath, cough, wheezing, and pleuritic chest pain, Skin: Negative for injury, rash, and discoloration, Neuro: Negative for headache, weakness, numbness, tingling, and seizure, Psych: Negative for depression, anxiety, suicide ideation, homicidal ideation, and hallucinations, Allergy/Immunology: Negative for hives, rash, and allergies, Endocrine: Negative for neck swelling, polydipsia, polyuria, polyphagia, and marked weight changes, Hematologic/Lymphatic: Negative for swollen nodes, abnormal bleeding, and unusual bruising. 19:01 Abdomen/GI: Positive for abdominal pain, of the suprapubic area. 19:01 Back: Positive for flank pain, on the right. 19:01 MS/extremity: Positive for decreased range of motion, pain, of the right hip and right knee. Exam: 19:01 Constitutional: This is a well developed, well nourished patient who is awake, alert, josr and in no acute distress. Head/Face: Normocephalic, atraumatic. Eyes: Pupils equal round and reactive to light, extra-ocular motions intact. Lids and lashes normal. Conjunctiva and sclera are non-icteric and not injected. Cornea within normal limits. Periorbital areas with no swelling, redness, or edema. ENT: Nares patent. No nasal discharge, no septal abnormalities noted. Tympanic membranes are normal and external auditory canals are clear. Oropharynx with no redness, swelling, or masses, exudates, or evidence of obstruction, uvula midline. Mucous membranes moist. Neck: Trachea midline, no thyromegaly or masses palpated, and no cervical lymphadenopathy. Supple, full range of motion without nuchal rigidity, or vertebral point tenderness. No Meningismus. Chest/axilla: Normal chest wall appearance and motion. Nontender with no deformity. No lesions are appreciated. Cardiovascular: Regular rate and rhythm with a normal S1 and S2. No gallops, murmurs, or rubs. Normal PMI, no JVD. No pulse deficits. Respiratory: Lungs have equal breath sounds bilaterally, clear to auscultation and percussion. No rales, rhonchi or wheezes noted. No increased work of breathing, no retractions or nasal flaring. Back: No spinal tenderness. No costovertebral tenderness. Full range of motion. Female : Normal external genitalia. Skin: Warm, dry with normal turgor. Normal color with no rashes, no lesions, and no evidence of cellulitis. Neuro: Awake and alert, GCS 15, oriented to person, place, time, and situation. Cranial nerves II-XII grossly intact. Motor strength 5/5 in all extremities. Sensory grossly intact. Cerebellar exam normal. Normal gait. Psych: Awake, alert, with orientation to person, place and time. Behavior, mood, and affect are within normal limits. 19:01 Abdomen/GI: Inspection: abdomen appears normal, Bowel sounds: normal, Palpation: mild abdominal tenderness, in the suprapubic area and right lower quadrant, Liver: no appreciated palpable abnormalities, Hernia: not appreciated. 19:01 Musculoskeletal/extremity: Extremities: grossly normal except: noted in the right knee: pain, swelling, not red, hot and with normal passive rom, pain at full flexion and extention. Vital Signs: 18:41 BP 124 / 77; Pulse 76; Resp 19; Temp 98.0(O); Pulse Ox 99% on R/A; Weight 72.57 kg (R); rb1 Height 5 ft. 4 in. (162.56 cm) (R); Pain 10/10; 19:45 BP 143 / 55; Pulse 77; Resp 18; Pulse Ox 100% on R/A; wh 21:09 BP 144 / 65; Pulse 94; Resp 20; Temp 98.0; Pulse Ox 98% on R/A; sr5 18:41 Body Mass Index 27.46 (72.57 kg, 162.56 cm) rb1 MDM: 18:39 Patient medically screened. [facility] 19:08 Data reviewed: vital signs, nurses notes, lab test result(s), radiologic studies, CT josr scan. 20:43 Counseling: I had a detailed discussion with the patient and/or guardian regarding: the la1 historical points, exam findings, and any diagnostic results supporting the discharge/admit diagnosis, lab results, radiology results, the need for outpatient follow up, a family practitioner, to return to the emergency department if symptoms worsen or persist or if there are any questions or concerns that arise at home. Special discussion:. 09/17 18:51 Order name: Urine Culture [facility] 09/17 18:51 Order name: CT Stone Protocol; Complete Time: 20:[address] [facility] 09/17 19:01 Order name: Knee Right 3 View XRAY; Complete Time: 20:[address] [facility] 09/17 19:57 Order name: Urine Dipstick--Ancillary (enter results); Complete Time: 20:00 cm6 09/17 18:51 Order name: Urine Dipstick-Ancillary (obtain specimen); Complete Time: 19:[address] [facility] 09/17 19:01 Order name: Hip Right 2 View XRAY; Complete Time: 20:[address] [facility] Administered Medications: 20:48 Not Given (Physician Discretion): NS 0.9% 500 ml IV at bolus once jd3 20:48 Not Given (Physician Discretion): NS 0.9% 1000 ml IV at 125 ml/hr continuous jd3 20:48 Not Given (Physician Discretion): Rocephin 1 grams IV at per protocol once; Given slow jd3 IV push per pharmacy instructions 20:57 Drug: Cipro 500 mg Route: PO; 21:10 Follow up: Response: No adverse reaction Disposition: 09/17/19 20:44 Discharged to Home. Impression: Dysuria, Pain in right hip, Pain in right knee, Urinary tract infection, site not specified, Osteoarthritis of hip, Osteoarthritis of knee. - Condition is Stable. - Discharge Instructions: Joint Pain, Arthritis, Dysuria, Musculoskeletal Pain, Urinary Tract Infection, Adult, Knee Pain, Urinary Tract Infection, Adult, [id number], Hip Pain. - Prescriptions for Cipro 250 mg Oral Tablet - take 2 tablets by ORAL route every 12 hours; 14 tablet. Bactrim DS 800- 160 mg Oral Tablet - take 1 tablet by ORAL route every 12 hours for 5 days; 10 tablet. - Medication Reconciliation Form, Thank You Letter, Antibiotic Education, Prescription Opioid Use form. - Follow up: Private Physician; When: 2 - 3 days; Reason: Recheck today's complaints, Continuance of care, Re-evaluation by your physician. Follow up: Dr. Jarocho Santillan; When: 2 - 3 days; Reason: Recheck today's complaints, Re-evaluation by your physician. - Problem is new. - Symptoms have improved. Addendum: 09/26/2019 09:15 Co-signature as Attending Physician, Alejo Cantrell MD I agree with the assessment and c mcdonald plan of care. Signatures: Dispatcher [employer] Alejo Mai MD MD cha Attema, Lee, MESSAGE AND DELIVERY SERVICE PRICER-C MESSAGE AND DELIVERY SERVICE PRICER-Cla1 Wilma Perez, RN RN rb1 Cam Nieves RN RN sr5 Jere Alvarado Jonathon RN jd3 Corrections: (The following items were deleted from the chart) 09/17 20:56 18:52 COMPREHENSIVE METABOLIC PANEL+C.LAB.BRZ ordered. EDMS EDMS 20:57 18:52 CBC+H.LAB.BRZ ordered. EDMS EDMS 21:08 20:44 09/17/2019 20:44 Discharged to Home. Impression: Dysuria; Pain in right hip; Pain sr5 in right knee; Urinary tract infection, site not specified; Osteoarthritis of hip; Osteoarthritis of knee. Condition is Stable. Discharge Instructions: Joint Pain, Arthritis, Dysuria, Musculoskeletal Pain, Urinary Tract Infection, Adult, Knee Pain, Urinary Tract Infection, Adult, [id number], Hip Pain. Prescriptions for Cipro 250 mg Oral Tablet - take 2 tablets by ORAL route every 12 hours; 14 tablet, Bactrim DS 800-160 mg Oral Tablet - take 1 tablet by ORAL route every 12 hours for 5 days; 10 tablet. and Forms are Medication Reconciliation Form, Thank You Letter, Antibiotic Education, Prescription Opioid Use. Follow up: Private Physician; When: 2 - 3 days; Reason: Recheck today's complaints, Continuance of care, Re-evaluation by your physician. Follow up: Dr. Jarocho Santillan; When: 2 - 3 days; Reason: Recheck today's complaints, Re-evaluation by your physician. Problem is new. Symptoms have improved. la1
[2019-09-17] MEDS ORDERED: CIPROFLOXACIN HCL 500 MG TAB ONE (20:58)
[2019-09-17 21:17] VITALS: TEMP 98
[2019-09-17 21:44] VITALS: BP 93/59; O2SAT 100
== END 2019-09-17 21:08 | disposition home or self-care (01) ==
LOC: ER 18:25
DX: M16.11 Unilateral primary osteoarthritis, right hip (principal); N39.0 Urinary tract infection, site not specified; M17.11 Unilateral primary osteoarthritis, right knee; M25.561 Pain in right knee; F17.210 Nicotine dependence, cigarettes, uncomplicated; I10 Essential (primary) hypertension; Z88.5 Allergy status to narcotic agent; Z91.048 Other nonmedicinal substance allergy status
CPT/HCPCS: 74176; 76377; 81003; 87086; 87088; 99284